=== PATIENT | male | born 1965 | race Caucasian/White ===

== ENCOUNTER 2024-01-11 07:03 | Inpatient (IN) | payer OTHER ==
--- NOTE | 2024-01-11 07:30 | ED ---
General Adult HPI - General Chief complaint: Chest Pain Stated complaint: Chest Pain Time Seen by Provider: 01/11/24 07:05 Source: patient, RN notes reviewed, old records reviewed Mode of arrival: ambulatory Limitations: no limitations - History of Present Illness Initial comments: This is a 58-year-old male who presents to the emergency department complaining of right-sided chest pain. Patient states that started yesterday and when he was at rest. Patient denies being short of breath he states he cannot take a deep breath. Patient denies any fever or chills. Patient states last week he did have an upper respiratory illness. Patient denies any abdominal pain patient has any back pain. Patient denies being on any long trips. Patient denies any calf tenderness or leg swelling - Related Data Home Medications Medication Instructions Recorded Confirmed Tamsulosin HCl [Flomax] 0.4 mg PO HS 01/11/24 01/11/24 Allergies Allergy/AdvReac Type Severity Reaction Status Date / Time No Known Allergies Allergy Verified 01/11/24 08:58 Review of Systems ROS Statement: Those systems with pertinent positive or pertinent negative responses have been documented in the HPI. ROS Other: All systems not noted in ROS Statement are negative. Past Medical History Past Medical History: No Reported History History of Any Multi-Drug Resistant Organisms: None Reported Past Surgical History: No Surgical Hx Reported Past Psychological History: No Psychological Hx Reported Smoking Status: Never smoker Past Alcohol Use History: None Reported Past Drug Use History: None Reported General Exam - General Exam Comments Initial Comments: GENERAL: Patient is well-developed and well-nourished. Patient is nontoxic and well- hydrated and is in mild distress. ENT: Neck is soft and supple. No significant lymphadenopathy is noted. Oropharynx is clear. Moist mucous membranes. Neck has full range of motion without eliciting any pain. EYES: The sclera were anicteric and conjunctiva were pink and moist. Extraocular movements were intact and pupils were equal round and reactive to light. Eyelids were unremarkable. PULMONARY: Unlabored respirations. Good breath sounds bilaterally. No audible rales rhonchi or wheezing was noted. CARDIOVASCULAR: Patient is tachycardic at about 110 beats a minute ABDOMEN: Soft and nontender with normal bowel sounds. SKIN: Skin is clear with no lesions or rashes and otherwise unremarkable. NEUROLOGIC: Patient is alert and oriented x3. Cranial nerves II through XII are grossly intact. Motor and sensory are also intact. Normal speech, volume and content. Symmetrical smile. MUSCULOSKELETAL: Normal extremities with adequate strength and full range of motion. LYMPHATICS: No significant lymphadenopathy is noted PSYCHIATRIC: Normal psychiatric evaluation. Limitations: no limitations Course Vital Signs 01/11/24 01/11/24 01/11/24 07:06 08:20 09:15 Temperature 98 F Pulse Rate 118 H 103 H 102 H Respiratory 22 20 20 Rate Blood Pressure 114/64 148/60 124/87 O2 Sat by Pulse 87 L 95 93 L Oximetry Medical Decision Making - Medical Decision Making EKG is interpreted by myself. EKG shows a sinus tachycardia at [address] interval 144 QRS is 97 QT interval is 281 QTc is 343. EKG shows Q waves in leads III and aVF. Was pt. sent in by a medical professional or institution (MEGGAN Gannon, MACHINE OPERATOR TRANSPLANTER, urgent care, hospital, or [facility]...) When possible be specific @ -[No] Did you speak to anyone other than the patient for history (EMS, parent, family, police, friend...)? What history was obtained from this source @ -[No] Did you review nursing and triage notes (agree or disagree)? Why? @ -[I reviewed and agree with nursing and triage notes] Were old charts reviewed (outside hosp., previous admission, EMS record, old EKG, old radiological studies, urgent care reports/EKG's, [facility] records)? Report findings @ -[No old charts were reviewed] Differential Diagnosis? @ -Differential Chest Pain: Stable Angina, Unstable Angina, STEMI, NSTEMI Aortic Dissection, Pneumothorax, Musculoskeletal, Esophageal Spasm GERD, Cholecystitis, Pancreatitis, Zoster, this is not meant to be an all-inclusive list. EKG interpreted by me (3pts min.). @ -[As above] X-rays interpreted by me (1pt min.). @ -Chest x-ray shows questionable infiltrate in the right lower lobe CT interpreted by me (1pt min.). @ -CT scan shows PE bilaterally U/S interpreted by me (1pt. min.). @ -[None done] What testing was considered but not performed or refused? (CT, X-rays, U/S, labs)? Why? @ -[None] What meds were considered but not given or refused? Why? @ -[None] Did you discuss the management of the patient with other professionals (professionals i.e. DrSydni, PA, MACHINE OPERATOR TRANSPLANTER, lab, RT, psych nurse, social service assistant, virtualization architect, teacher, president and chief commercial officer, casework supervisor)? Give summary @ -I spoke with Dr. Ag and made him aware of the PE with right heart strain. I spoke with [facility] Was smoking cessation discussed for >3mins.? @ -[No] Was critical care preformed (if so, how long)? @ -35 minutes Were there social determinants of health that impacted care today? How? (Homele ssness, low income, unemployed, alcoholism, drug addiction, transportation, low edu. Level, literacy, decrease access to med. care, senior living, rehab)? @ -[No] Was there de-escalation of care discussed even if they declined (Discuss DNR or withdrawal of care, Hospice)? DNR status @ -[No] What co-morbidities impacted this encounter? (DM, HTN, Smoking, COPD, CAD, Cancer, CVA, ARF, Chemo, Hep., AIDS, mental health diagnosis, sleep apnea, morbid obesity)? @ -[None] Was patient admitted / discharged? Hospital course, mention meds given and route, prescriptions, significant lab abnormalities, going to OR and other pertinent info. @ -Patient had classic PE symptoms that was verified by CAT scan. Patient was started on heparin and was given Toradol for some discomfort. Patient had an echo ordered by myself and I admitted the patient to [facility] who accepted the patient Undiagnosed new problem with uncertain prognosis? @ -[No] Drug Therapy requiring intensive monitoring for toxicity (Heparin, Nitro, Insulin, Cardizem)? @ -[No] Were any procedures done? @ -[No] Diagnosis/symptom? @ -Pulmonary embolism Acute, or Chronic, or Acute on Chronic? @ -Acute Uncomplicated (without systemic symptoms) or Complicated (systemic symptoms)? @ -Complicated Side effects of treatment? @ -[No] Exacerbation, Progression, or Severe Exacerbation? @ -[No] Poses a threat to life or bodily function? How? (Chest pain, [place], SD, pneumonia, PE, COPD, DKA, ARF, appy, cholecystitis, CVA, Diverticulitis, Homicidal, Suicidal, threat to staff... and all critical care pts) @ -Yes this could lead to hypoxia and endorgan dysfunction or - Lab Data Result diagrams: 01/11/24 07:27 01/11/24 07:27 Lab Results 01/11/24 01/11/24 01/11/24 Range/Units 07:27 07:27 07:27 WBC 11.1 H (3.8-10.6) k/uL RBC 5.17 (4.30-5.90) m/uL Hgb 15.3 (13.0-17.5) gm/dL Hct 47.1 (39.0-53.0) % MCV 91.1 (80.0-100.0) fL MCH 29.6 (25.0-35.0) pg MCHC 32.4 (31.0-37.0) g/dL RDW 13.5 (11.5-15.5) % Plt Count 175 (150-450) k/uL MPV 9.1 Neutrophils % 72 % Lymphocytes % 16 % Monocytes % 8 % Eosinophils % 0 % Basophils % 1 % Neutrophils # 8.0 H (1.3-7.7) k/uL Lymphocytes # 1.8 (1.0-4.8) k/uL Monocytes # 0.9 (0-1.0) k/uL Eosinophils # 0.0 (0-0.7) k/uL Basophils # 0.1 (0-0.2) k/uL PT 12.8 H (10.0-12.5) sec INR 1.2 H (<1.2) APTT 26.7 (22.0-30.0) sec D-Dimer 25.07 H (<0.60) mg/L FEU Sodium 135 L (137-145) mmol/L Potassium 3.5 (3.5-5.1) mmol/L Chloride 105 (98-107) mmol/L Carbon Dioxide 22 (22-30) mmol/L Anion Gap 8 mmol/L BUN 14 (9-20) mg/dL Creatinine 0.95 (0.66-1.25) mg/dL Est GFR (CKD-EPI)AfAm >90 (>60 ml/min/1.73 sqM) Est GFR (CKD-EPI)NonAf 88 (>60 ml/min/1.73 sqM) Glucose 117 H (74-99) mg/dL Calcium 8.6 (8.4-10.2) mg/dL Magnesium 2.1 (1.6-2.3) mg/dL Total Bilirubin 1.5 H (0.2-1.3) mg/dL AST 41 (17-59) U/L ALT 50 H (4-49) U/L Alkaline Phosphatase 73 (38-126) U/L Troponin I (0.000-0.034) ng/mL Total Protein 6.7 (6.3-8.2) g/dL Albumin 3.9 (3.5-5.0) g/dL 01/11/24 Range/Units 07:27 WBC (3.8-10.6) k/uL RBC (4.30-5.90) m/uL Hgb (13.0-17.5) gm/dL Hct (39.0-53.0) % MCV (80.0-100.0) fL MCH (25.0-35.0) pg MCHC (31.0-37.0) g/dL RDW (11.5-15.5) % Plt Count (150-450) k/uL MPV Neutrophils % % Lymphocytes % % Monocytes % % Eosinophils % % Basophils % % Neutrophils # (1.3-7.7) k/uL Lymphocytes # (1.0-4.8) k/uL Monocytes # (0-1.0) k/uL Eosinophils # (0-0.7) k/uL Basophils # (0-0.2) k/uL PT (10.0-12.5) sec INR (<1.2) APTT (22.0-30.0) sec D-Dimer (<0.60) mg/L FEU Sodium (137-145) mmol/L Potassium (3.5-5.1) mmol/L Chloride (98-107) mmol/L Carbon Dioxide (22-30) mmol/L Anion Gap mmol/L BUN (9-20) mg/dL Creatinine (0.66-1.25) mg/dL Est GFR (CKD-EPI)AfAm (>60 ml/min/1.73 sqM) Est GFR (CKD-EPI)NonAf (>60 ml/min/1.73 sqM) Glucose (74-99) mg/dL Calcium (8.4-10.2) mg/dL Magnesium (1.6-2.3) mg/dL Total Bilirubin (0.2-1.3) mg/dL AST (17-59) U/L ALT (4-49) U/L Alkaline Phosphatase (38-126) U/L Troponin I 0.070 H* (0.000-0.034) ng/mL Total Protein (6.3-8.2) g/dL Albumin (3.5-5.0) g/dL Critical Care Time Critical Care Time: Yes Total Critical Care Time: 35 Disposition Clinical Impression: Acute pulmonary embolism Disposition: ADMITTED IP TO THIS HOSP Referrals: None,Stated [REFERRING] - 1-2 days Time of Disposition: 09:43
--- NOTE | 2024-01-11 07:33 | XR ---
EXAMINATION TYPE: XR chest 2V DATE OF EXAM: 01/11/2024 COMPARISON: None INDICATION: Chest pain TECHNIQUE: Frontal and lateral views of the chest are obtained. FINDINGS: The heart size is normal. The pulmonary vasculature is normal. There appears to be some mild infiltrate along the right medial lower lobe. Correlate for atelectasis or pneumonia. IMPRESSION: 1. Right lower lobe atelectasis or pneumonia. Follow-up recommended.
[2024-01-11] MEDS: SODIUM CHLORIDE 0.9% 500 ML 500 ML IV STA (07:34)
[2024-01-11 08:06] LABS: Basophils # (A) 0.1 k/uL (0-0.2); Basophils % (A) 1 %; Eosinophils % (A) 0 %; HCT 47.1 % (39.0-53.0); HGB 15.3 gm/dL (13.0-17.5); Lymphocytes # (A) 1.8 k/uL (1.0-4.8); Lymphocytes % (A) 16 %; MCH 29.6 pg (25.0-35.0); MCHC 32.4 g/dL (31.0-37.0); MCV 91.1 fL (80.0-100.0); Mean Platelet Volume 9.1; Monocytes # (A) 0.9 k/uL (0-1.0); Monocytes % (A) 8 %; Neutrophils % (A) 72 %; Platelet Count 175 k/uL (150-450); RBC 5.17 m/uL (4.30-5.90); RDW 13.5 % (11.5-15.5); WBC 11.1 k/uL (3.8-10.6)
[2024-01-11 08:14] LABS: ALT 50 U/L (4-49); AST 41 U/L (17-59); African American GFR (CKD) >90 (>60 ml/min/1.73 sqM); Albumin 3.9 g/dL (3.5-5.0); Alkaline Phosphatase 73 U/L (38-126); Anion Gap 8 mmol/L; Blood Urea Nitrogen 14 mg/dL (9-20); Calcium 8.6 mg/dL (8.4-10.2); Carbon Dioxide 22 mmol/L (22-30); Chloride 105 mmol/L (98-107); Glucose 117 mg/dL (74-99); Magnesium 2.1 mg/dL (1.6-2.3); Non-African American GFR(CKD) 88 (>60 ml/min/1.73 sqM); Potassium 3.5 mmol/L (3.5-5.1); Sodium 135 mmol/L (137-145); Total Bilirubin 1.5 mg/dL (0.2-1.3); Total Protein 6.7 g/dL (6.3-8.2)
[2024-01-11 08:22] LABS: INR 1.2 (<1.2); Partial Thromboplastin Time 26.7 sec (22.0-30.0); Prothrombin Time 12.8 sec (10.0-12.5)
[2024-01-11] MEDS: KETOROLAC 15 MG/ML 1 ML VIAL IVP STA (08:26)
[2024-01-11] MEDS: HEPARIN SODIUM 1,000 UN/ML (10ML VL) IV ONE (08:46)
[2024-01-11] MEDS: HEPARIN SOD,PORK IN 0.45% NACL 25,000 UNIT in 0.45% NACL 1 250ML.BAG IV SCH ×3 (08:48→17:00)
--- NOTE | 2024-01-11 09:06 | CT ---
EXAMINATION TYPE: CT chest angio for PE CT DLP: 453.6 mGycm, Automated exposure control for dose reduction was used. DATE OF EXAM: 01/11/2024 8:47 AM COMPARISON: Chest radiograph from same day. CLINICAL INDICATION:Male, 58 years old with history of Chest pain; chest pain, elevated d-dimer TECHNIQUE/CONTRAST: CTA scan of the thorax is performed with IV Contrast, patient injected with 100 mL of Isovue 370, MIP images are created and reviewed these are created on a separate workstation.. FINDINGS: Pulmonary Artery: Bilateral pulmonary emboli in the pulmonary arteries extending to the lobar, segmen ana and subsegmental branches with evidence of right heart strain RV/LV 44/30 = 1.4 Lungs/Pleura: Ground glass opacities throughout the lungs most pronounced in the lower lungs. No foca l consolidation, pneumothorax or pleural effusion. Airway: Large airways are patent. Heart: Heart is within normal limits for size. Vasculature: No evidence of aortic aneurysm. Mediastinum: No gross evidence of adenopathy. Musculoskeletal: Mild degenerative disc disease changes are present throughout the thoracolumbar spin e. Soft Tissues/lymph nodes: Unremarkable. Lower neck: No significant findings. Upper Abdomen: Partially visualized is the mesentery with mesenteric lymph nodes. Gallstones in the g allbladder lumen. IMPRESSION: 1. Bilateral pulmonary emboli with evidence of right heart strain. 2. Wedge-shaped ground glass opacities possibly representing early pulmonary infarct. Findings communicated to Dr. Edgar Pablo MD on 01/11/2024 9:[address] Black Hanson.
[2024-01-11] MEDS: SODIUM CHLORIDE 0.9% 1,000 ML IV ONE (09:58)
--- NOTE | 2024-01-11 11:01 | P.GSCN ---
History of Present Illness Consult date: 01/11/24 Reason for Consult: Pulmonary embolism Requesting physician: Edgar Pablo History of present illness: This is a pleasant 58-year-old male who presented to the emergency department this morning with complaints of shortness of breath and pain in the right side of his chest. Patient states pain started yesterday in the right side of his ribs with shortness of breath and difficult to take deep breath without causing sharp pain. He had blood work that showed elevated D-dimer as well as elevated troponin. He had a CT angiogram of the chest which reported bilateral pulmonary emboli with evidence of right heart strain, wedge-shaped groundglass opacity possible representing early pulmonary infarct. Vascular surgery was consulted for pulmonary embolism. Patient has history of previous right lower extremity DVT about 12 years ago following vein treatment procedure. He was on anticoagulation at that time. St ates that he has not had any recent surgeries or procedures, no recent travel, he is a non-smoker, no new pain in his lower extremities. States that he does have varicosities so they will be uncomfortable at times but nothing significant. States he is having pain with deep breaths mostly on the right side. Denies any chest pain, no abdominal pain, nausea or vomiting. He has been afebrile. He is currently on 3 L of nasal cannula oxygen saturation 93 to 95%, heart rate 103 blood pressure 148/60 respiratory rate 20. Patient denies any history brain bleed or previous GI bleed. Denies any known family history of clotting disorders or bleeding disorders. Review of Systems A 14 point review systems was completed all pertinent positives and negatives as stated in the HPI. Past Medical History Past Medical History: No Reported History History of Any Multi-Drug Resistant Organisms: None Reported Past Surgical History: No Surgical Hx Reported Past Psychological History: No Psychological Hx Reported Smoking Status: Never smoker Past Alcohol Use History: None Reported Past Drug Use History: None Reported Medications and Allergies Home Medications Medication Instructions Recorded Confirmed Type Tamsulosin HCl [Flomax] 0.4 mg PO HS 01/11/24 01/11/24 History Allergies Allergy/AdvReac Type Severity Reaction Status Date / Time No Known Allergies Allergy Verified 01/11/24 08:58 Surgical - Exam Vital Signs Temp Pulse Resp BP Pulse Ox 98 F 118 H 22 114/64 87 L 01/11/24 07:06 01/11/24 07:06 01/11/24 07:06 01/11/24 07:06 01/11/24 07:06 General appearance: The patient is alert, oriented, appears in no acute distress. HET: Head is normocephalic and atraumatic. Pupils are equal and reactive. Neck: Supple. Heart: Regular. Lungs: Equal expansion, normal respiratory effort. Abdomen: Soft, nontender, nondistended. Extremities: Normal skin color and turgor. Lower extremity swelling. Neurological: No focal deficits. Strength and sensation are grossly intact. Results - Labs 01/11/24 07:27 01/11/24 07:27 Abnormal Lab Results - Last 24 Hours (Table) 01/11/24 01/11/24 01/11/24 Range/Units 07:27 07:27 07:27 WBC 11.1 H (3.8-10.6) k/uL Neutrophils # 8.0 H (1.3-7.7) k/uL PT 12.8 H (10.0-12.5) sec INR 1.2 H (<1.2) D-Dimer 25.07 H (<0.60) mg/L FEU Sodium 135 L (137-145) mmol/L Glucose 117 H (74-99) mg/dL Total Bilirubin 1.5 H (0.2-1.3) mg/dL ALT 50 H (4-49) U/L Troponin I (0.000-0.034) ng/mL 01/11/24 Range/Units 07:27 WBC (3.8-10.6) k/uL Neutrophils # (1.3-7.7) k/uL PT (10.0-12.5) sec INR (<1.2) D-Dimer (<0.60) mg/L FEU Sodium (137-145) mmol/L Glucose (74-99) mg/dL Total Bilirubin (0.2-1.3) mg/dL ALT (4-49) U/L Troponin I 0.070 H* (0.000-0.034) ng/mL Diabetes panel 01/11/24 Range/Units 07:27 Sodium 135 L (137-145) mmol/L Potassium 3.5 (3.5-5.1) mmol/L Chloride 105 (98-107) mmol/L Carbon Dioxide 22 (22-30) mmol/L BUN 14 (9-20) mg/dL Creatinine 0.95 (0.66-1.25) mg/dL Glucose 117 H (74-99) mg/dL Calcium 8.6 (8.4-10.2) mg/dL AST 41 (17-59) U/L ALT 50 H (4-49) U/L Alkaline Phosphatase 73 (38-126) U/L Total Protein 6.7 (6.3-8.2) g/dL Albumin 3.9 (3.5-5.0) g/dL Calcium panel 01/11/24 Range/Units 07:27 Calcium 8.6 (8.4-10.2) mg/dL Albumin 3.9 (3.5-5.0) g/dL Pituitary panel 01/11/24 Range/Units 07:27 Sodium 135 L (137-145) mmol/L Potassium 3.5 (3.5-5.1) mmol/L Chloride 105 (98-107) mmol/L Carbon Dioxide 22 (22-30) mmol/L BUN 14 (9-20) mg/dL Creatinine 0.95 (0.66-1.25) mg/dL Glucose 117 H (74-99) mg/dL Calcium 8.6 (8.4-10.2) mg/dL Adrenal panel 01/11/24 Range/Units 07:27 Sodium 135 L (137-145) mmol/L Potassium 3.5 (3.5-5.1) mmol/L Chloride 105 (98-107) mmol/L Carbon Dioxide 22 (22-30) mmol/L BUN 14 (9-20) mg/dL Creatinine 0.95 (0.66-1.25) mg/dL Glucose 117 H (74-99) mg/dL Calcium 8.6 (8.4-10.2) mg/dL Total Bilirubin 1.5 H (0.2-1.3) mg/dL AST 41 (17-59) U/L ALT 50 H (4-49) U/L Alkaline Phosphatase 73 (38-126) U/L Total Protein 6.7 (6.3-8.2) g/dL Albumin 3.9 (3.5-5.0) g/dL - Imaging Comments: CT angiogram of the chest which reported bilateral pulmonary emboli with evidence of right heart strain, wedge-shaped groundglass opacity possible representing early pulmonary infarct Assessment and Plan Assessment: 1. Bilateral submassive pulmonary embolism with right heart strain 2. History of right lower extremity deep vein thrombosis Plan: 1. Continue symptomatic and supportive care 2. Continue IV heparin 3. Type and screen ordered 4. Keep n.p.o. 5. Patient scheduled for EKOS procedure, procedure discussed with patient including risks and benefits. Will plan tentatively for this afternoon. 6. Rest of medical management per primary medical team Thank you for this consultation, we will continue to follow. The impression and plan of care has been dictated as directed. Dr. Perry I performed a history and examination of this patient, discussed the same with the dictator. I agree with the dictator's note ,documented as a scribe. Any additional findings or plans will be noted.
--- NOTE | 2024-01-11 11:05 | P.HPIM ---
History of Present Illness H&P Date: 01/11/24 History of Present Illness: Patient is a 58-year-old male with past medical history of venous insufficiency, DVT, and BPH complaining of right-sided chest pain. He states the pain started yesterday while he woke up describes it as a constant sharp pain made worse by inhaling. He also states the pain was made worse when changing positions from sitting to standing. He rates the pain a 7 out of 10. Denies any calf tenderness, edema, redness. Patient states he had a viral illness last week. He also says he had surgery for vein removal on the right leg due to venous insufficiency 15 years ago which led to DVT from the right lower extremity. Denies any nausea vomiting, fever, chills, palpitations, edema, headache, changes in vision. In the ED his vitals showed tachycardia with a heart rate of 104. Chest x-ray showed right lower lobe atelectasis. EKG on independent interpretation showed sinus tachycardia with ST elevation in leads II, 3. Chest CTA independently interpreted showed bilateral pulmonary emboli with right heart strain with wedge-shaped groundglass opacities. Patient had elevated D-dimer 25.07. Was started on heparin IV to 250 mls @ 18.37 mls/hr in the ED. Venous Doppler positive for left leg DVT. Vascular surgery following patient scheduled for EKOS procedure today. Pertinent positives and negatives as discussed above, a complete review of systems was performed and all other systems are negative. Vitals: Signs Reviewed Physical Exam: General: nontoxic, in moderate distress, appears at stated age Derm: warm, dry, intact Head: atraumatic, normocephalic, symmetric Eyes: EOMI, no lid lag, anicteric sclera Mouth: no lip lesion, mucus membranes moist Cardiovascular: S1 S2 reg, no murmur, rubs, or gallops, tachycardic Lungs: CTA bilateral, no rhonchi, no rales, no accessory muscle use, dyspnea Abdominal: soft, non-tender to palpataion, no appreciable organomegaly Extremities: no gross muscle atrophy, no edema, no contractures Neuro: Alert, Oriented, CNII-XII grossly intact, gait normal Psych: well appearing, appropriate affect Data Received Today: Pertinent Labs PT 12.8, INR 1.2, 8 PE TTE 26.7, D-dimer 25.07 Imaging: Chest CTA: Bilateral pulmonary emboli with right heart strain. EKG: Sinus tachycardia with slight ST elevation in leads II, III, aVF Chest x-ray: Right lower lobe atelectasis independently interpreted. Venous Doppler study: Left leg positive for DVT. There is a 6.6 cm acute DVT within the mid femoral vein. There is also thrombophlebitis at patient's site of discoloration at the anterior proximal calf. Echocardiogram Doppler: Left ventricular ejection fraction estimated at 55 to 60%. Mildly increased Assessment and Plan: Patient is a 58-year-old male with a past medical history of DVT, venous insufficiency, BPH that presents with right-sided chest pain. Acute hypoxic respiratory failure secondary to bilateral submassive pulmonary embolism with right heart strain due to DVT in the left leg Heparin IV to 50 MLS at 2.5 MLS/HR daily tPA 6mg 150 mls @ 25 mls/hr IV q6h 1 mg/hr IV saline 0.9% 1000 mls at 35 mls/hr q24hr Troponin elevated likely due to right heart strain Vascular surgery following Scheduled for EKOS procedure today. BPH, chronic Flomax 0.4 mg p.o. nightly History of right lower extremity DVT venous insufficiency, chronic F: saline 0.9% 1000 mls at 35 mls/hr E: replete as needed N: NPO A: fall precautions DVT ppx: IV heparin, tPA Code status: Unknown Anticipated discharge place: Pending clinical course Anticipated discharge time: Pending clinical course I have seen and evaluated the patient today. Discussed with the resident and agree with the residents finding and plan as documented in the resident's note. Patient was seen after EKOS. Doing well. No more chest pain or SOB. LLE + DVT. Echo EF 55-60%, dilated RV and mild RV hypokinesis, mild-mod TR. Acute hypoxic respiratory failure secondary to bilateral PE with right heart strain Troponin elevation likely type II NSTEMI Leukocytosis Supratherapeutic INR Continue Heparin drip and thrombolytics. Monitor APTT and signs of bleeding. Pain management with Tylenol 650 mg PO Q6H PRN, [place] 5 1 tab PO Q4H PRN, Morphine 2 mg IV Q4H PRN. Zofran 4 mg IV Q8H PRN for N/V. Advanced neurochecks. Telemetry monitoring. Vascular surgery on board. Past Medical History Past Medical History: No Reported History History of Any Multi-Drug Resistant Organisms: None Reported Past Surgical History: No Surgical Hx Reported Past Psychological History: No Psychological Hx Reported Smoking Status: Never smoker Past Alcohol Use History: None Reported Past Drug Use History: None Reported Medications and Allergies Home Medications Medication Instructions Recorded Confirmed Type Tamsulosin HCl [Flomax] 0.4 mg PO HS 01/11/24 01/11/24 History Allergies Allergy/AdvReac Type Severity Reaction Status Date / Time No Known Allergies Allergy Verified 01/11/24 08:58 Physical Exam Vitals: Vital Signs Temp Pulse Resp BP Pulse Ox 01/11/24 09:15 102 H 20 124/87 93 L 01/11/24 08:20 103 H 20 148/60 95 01/11/24 07:06 98 F 118 H 22 114/64 87 L Intake and Output 01/10/24 01/11/24 01/11/24 22:59 06:59 14:59 Other: Weight 102.058 kg Results CBC & Chem 7: 01/11/24 07:27 01/11/24 07:27 Labs: Abnormal Lab Results - Last 24 Hours (Table) 01/11/24 01/11/24 01/11/24 Range/Units 07:27 07:27 07:27 WBC 11.1 H (3.8-10.6) k/uL Neutrophils # 8.0 H (1.3-7.7) k/uL PT 12.8 H (10.0-12.5) sec INR 1.2 H (<1.2) D-Dimer 25.07 H (<0.60) mg/L FEU Sodium 135 L (137-145) mmol/L Glucose 117 H (74-99) mg/dL Total Bilirubin 1.5 H (0.2-1.3) mg/dL ALT 50 H (4-49) U/L Troponin I (0.000-0.034) ng/mL 01/11/24 Range/Units 07:27 WBC (3.8-10.6) k/uL Neutrophils # (1.3-7.7) k/uL PT (10.0-12.5) sec INR (<1.2) D-Dimer (<0.60) mg/L FEU Sodium (137-145) mmol/L Glucose (74-99) mg/dL Total Bilirubin (0.2-1.3) mg/dL ALT (4-49) U/L Troponin I 0.070 H* (0.000-0.034) ng/mL
--- NOTE | 2024-01-11 12:39 | US ---
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 VESSELS IMAGED: Common Femoral Vein Deep Femoral Vein Greater Saphenous Vein * Femoral Vein Popliteal Vein Small Saphenous Vein * Proximal Calf Veins (* superficial vessels) Right Leg: Negative for DVT Left Leg: Positive for DVT, there is a 6.6cm acute DVT within the mid femoral vein. There is also th rombophlebitis at patients site of discoloration at the anterior prox calf IMPRESSION: Positive deep vein thrombosis in the left leg
--- NOTE | 2024-01-11 14:16 | CA ---
Transthoracic Echo Report Name: Devendra Calle Age: 58 Gender: M : 1965 Exam Date: 01/11/2024 10:06 Exam Location: [facility] Ht (in): 60 Wt (lb): 225 Ordering Physician: Edgar Pablo MD Attending/Referring Phys: Tag Maker Azalea Casey RDCS Procedure CPT: Indications: Saddle pulmonary embolism Cardiac Hx: Technical Quality: Technically difficult study Contrast 1: Definity Total Dose (mL): 2 Contrast 2: Total Dose (mL): MEASUREMENTS (Male / Female) Normal Values 2D ECHO LV Diastolic Diameter PLAX 3.4 cm 4.2 - 5.9 / 3.9 - 5.3 cm LV Systolic Diameter PLAX 2.2 cm IVS Diastolic Thickness 1.1 cm 0.6 - 1.0 / 0.6 - 0.9 cm LVPW Diastolic Thickness 1.0 cm 0.6 - 1.0 / 0.6 - 0.9 cm LV Relative Wall Thickness 0.6 LVOT Diameter 2.0 cm LV Diastolic Volume MOD BP 57.8 cm??? 67 - 155 / 56 - 104 cm??? LV Systolic Volume MOD BP 21.2 cm??? 22 - 58 / 19 - 49 cm??? LV Ejection Fraction MOD BP 63.2 % >= 55 % LV Cardiac Index MOD BP 1673.0 cm???/min???m??? LV Diastolic Volume MOD 4C 57.9 cm??? LV Systolic Volume MOD 4C 18.4 cm??? LV Ejection Fraction MOD 4C 68.2 % LV Cardiac Index MOD 4C 1808.9 cm???/min???m??? LV Diastolic Length 4C 8.5 cm LV Systolic Length 4C 6.3 cm LV Diastolic Volume MOD 2C 52.6 cm??? LV Systolic Volume MOD 2C 21.8 cm??? LV Ejection Fraction MOD 2C 58.5 % LV Cardiac Index MOD 2C 1408.1 cm???/min???m??? LV Diastolic Length 2C 7.8 cm LV Systolic Length 2C 7.1 cm LA Volume 52.4 cm??? 18 - 58 / 22 - 52 cm??? LA Volume Index 24.5 cm???/m??? 16 - 28 cm???/m??? Ascending Aorta Diameter 2.8 cm DOPPLER AV Peak Velocity 131.9 cm/s AV Peak Gradient 7.0 mmHg AV Mean Velocity 91.0 cm/s AV Mean Gradient 3.7 mmHg AV Velocity Time Integral 20.6 cm LVOT Peak Velocity 117.7 cm/s LVOT Peak Gradient 5.5 mmHg LVOT Velocity Time Integral 18.3 cm LVOT Stroke Volume 55.1 cm??? LVOT Stroke Volume Index 28.1 ml/m??? LVOT Cardiac Index 2524.1 cm???/min???m??? AV Area Cont Eq vti 2.7 cm??? AV Area Cont Eq pk 2.7 cm??? MV Area PHT 6.0 cm??? Mitral E Point Velocity 49.9 cm/s Mitral A Point Velocity 61.9 cm/s Mitral E to A Ratio 0.8 MV Deceleration Time 126.4 ms TR Peak Velocity 350.8 cm/s TR Peak Gradient 49.2 mmHg PV Peak Velocity 66.5 cm/s PV Peak Gradient 1.8 mmHg FINDINGS Left Ventricle Left ventricular ejection fraction is estimated at 55-60 %. Mildly increased septal wall thickness. Left ventricular cavity size normal. No obvious regional wall motion abnormalities. Right Ventricle Moderately dilated right ventricle with mild right ventricular hypokinesis. RVSP 49. Right Atrium Normal right atrial size. Left Atrium Normal left atrial size. Mitral Valve Structurally normal mitral valve. No mitral stenosis, regurgitation or prolapse. Aortic Valve Trileaflet aortic valve. Aortic valve sclerosis. No aortic valve stenosis or regurgitation. Tricuspid Valve Structurally normal tricuspid valve. No tricuspid stenosis. Hbto-ii-cptmyzce tricuspid regurgitation. Pulmonic Valve Structurally normal pulmonic valve. No pulmonic stenosis. No pulmonic regurgitation. Pericardium No pericardial effusion. Aorta Normal size aortic root and proximal ascending aorta. CONCLUSIONS Left ventricular ejection fraction 55-60% Mildly increased left ventricular wall thickened Moderately dilated right ventricle with mild right ventricular hypokinesis RVSP 49 Mild to moderate tricuspid regurgitation No pericardial effusion Previewed by: Dr. Melvin Zafar DO (Electronically Signed) Final Date: 11 January 2024 14:16
[2024-01-11] MEDS ORDERED: LIDOCAINE 1% INJ 10MG/ML (20 ML MDV) ONE (14:34)
[2024-01-11] MEDS ORDERED: fentaNYL (PF) 50 MCG/ML 2 ML AMP ONE (14:59)
[2024-01-11] MEDS: LIDOCAINE 1% INJ 10MG/ML (20 ML MDV) SQ ONE (15:00)
[2024-01-11] MEDS: MIDAZOLAM 2 MG/2 ML VIAL IVP ONE (15:02)
[2024-01-11] MEDS: fentaNYL (PF) 50 MCG/ML 2 ML AMP IVP ONE (15:02)
--- NOTE | 2024-01-11 16:34 | P.OP ---
Date of Procedure: 01/11/24 Description of Procedure: Preoperative diagnosis: Submassive bilateral pulmonary emboli Postoperative diagnosis: Same, duplicate IVC Procedure: #1 ultrasound-guided right common femoral vein access of central venous catheters x 2 2. Iliofemoral angiogram 3. Inferior venacavogram, selective of each vena cava #2 bilateral selective pulmonary angiogram third order #3 Initiation of pulmonary pharmacal mechanical thrombolysis with EKOS #4 Moderate conscious sedation x [57m] Surgeon: Abby Perry D.O. EBL: Less than 10 mL IV fluids: See records Urine output: See records Drains: None Complications: None immediately apparent Condition: Stable to ICU Operative indication and findings: [Patient is a 58-year-old male with new onset shortness of breath workup and evaluation was found to have submassive bilateral pulmonary emboli therefore risks and benefits were discussed and the recommendations were made for thrombectomy/thrombolysis. He seems understood and was willing to proceed.] Procedure in detail: [The patient was taken to the radiology suite and placed in supine position. Bilateral groins are prepped and draped in usual sterile fashion. A preprocedure timeout was performed, all parties were in agreement. The right common femoral vein was identified and found to be compressible without any evidence of visible thrombus. A permanent image was stored the skin overlying was anesthetized 1% lidocaine plain. A multipurpose needle was used and the vein was accessed and a wire was placed. This was done again through a separate access site. 2, 6-Persian sheaths were placed. Using catheters and wires attempts were made to access the right and left pulmonary arteries however there seem to be continued difficulty in tracking through this level to the level of the pulmonary vasculature. An angiogram was performed showing a patent vena cava with some degree of tortuosity. At that point after multiple catheters, the CT scan was repeated reviewed and it did appear that there may be evidence of a duplicated IVC with the left sided portion draining into the superior vena cava directly and brachiocephalic vein. A repeat image was performed at the distal confluence and the duplicated visualization was achieved. This right lateral portion was selected and a repeat venogram was performed. There appeared to be direct connection with the ventricle as typical. These catheters and wires were then used to access the right and left pulmonary artery with selective angiogram performed. Once positioning was confirmed, an EKOS ultrasonic pharmacomechanical infusion catheter was placed and confirmed appropriate positioning within the pulmonary arteries. The catheters were hooked up to appropriate fluid infusions for the optelyse protocol for submassive pulmonary emboli. The sheaths were sutured in place. Dressing was placed. The patient was transferred back to ICU in stable condition having tolerated the procedure well.
[2024-01-11 16:54] LABS: Glucose,Whole Blood 91 mg/dL (70-110)
[2024-01-11] MEDS: SODIUM CHLORIDE 0.9% 1,000 ML IV SCH ×4 (17:00→23:01)
[2024-01-11] MEDS: ALTEPLASE 6 MG in SODIUM CHLORIDE 0.9% 144 ML IV ONE ×2 (17:00)
[2024-01-11] MEDS ORDERED: HYDROcodone/APAP 5-325MG 1 EACH TAB PO PRN (17:28)
[2024-01-11] MEDS ORDERED: MELATONIN 3 MG TABLET PO PRN (17:28)
[2024-01-11] MEDS ORDERED: NALOXONE 0.4 MG/ML 1 ML VIAL IV PRN (17:28)
[2024-01-11 17:59] LABS: Basophils % (A) 0 %; Eosinophils % (A) 0 %; HGB 14.2 gm/dL (13.0-17.5); Lymphocytes # (A) 1.5 k/uL (1.0-4.8); Lymphocytes % (A) 17 %; MCH 30.6 pg (25.0-35.0); MCHC 32.9 g/dL (31.0-37.0); Mean Platelet Volume 8.7; Monocytes # (A) 0.7 k/uL (0-1.0); Monocytes % (A) 7 %; Neutrophils # (A) 6.7 k/uL (1.3-7.7); Neutrophils % (A) 72 %; Platelet Count 159 k/uL (150-450); RBC 4.63 m/uL (4.30-5.90); RDW 13.4 % (11.5-15.5); WBC 9.2 k/uL (3.8-10.6)
[2024-01-11 18:16] LABS: Partial Thromboplastin Time 33.7 sec (22.0-30.0)
[2024-01-11] MEDS: TAMSULOSIN 0.4 MG CAP.ER.24H PO SCH (21:22)
[2024-01-12 02:01] LABS: Basophils % (A) 0 %; Eosinophils % (A) 0 %; HCT 40.7 % (39.0-53.0); HGB 13.5 gm/dL (13.0-17.5); Lymphocytes # (A) 1.3 k/uL (1.0-4.8); Lymphocytes % (A) 14 %; MCH 30.7 pg (25.0-35.0); MCHC 33.1 g/dL (31.0-37.0); MCV 92.9 fL (80.0-100.0); Mean Platelet Volume 8.9; Monocytes # (A) 0.6 k/uL (0-1.0); Monocytes % (A) 6 %; Neutrophils # (A) 7.3 k/uL (1.3-7.7); Neutrophils % (A) 78 %; Platelet Count 150 k/uL (150-450); RBC 4.38 m/uL (4.30-5.90); RDW 13.3 % (11.5-15.5); WBC 9.4 k/uL (3.8-10.6)
[2024-01-12 04:58] LABS: Basophils % (A) 0 %; Eosinophils % (A) 1 %; HCT 39.3 % (39.0-53.0); HGB 12.9 gm/dL (13.0-17.5); Lymphocytes # (A) 1.3 k/uL (1.0-4.8); Lymphocytes % (A) 16 %; MCH 30.6 pg (25.0-35.0); MCHC 32.8 g/dL (31.0-37.0); MCV 93.3 fL (80.0-100.0); Monocytes # (A) 0.5 k/uL (0-1.0); Monocytes % (A) 7 %; Neutrophils # (A) 6.2 k/uL (1.3-7.7); Neutrophils % (A) 75 %; Platelet Count 164 k/uL (150-450); RBC 4.21 m/uL (4.30-5.90); RDW 13.3 % (11.5-15.5); WBC 8.4 k/uL (3.8-10.6)
[2024-01-12 05:13] LABS: ALT 35 U/L (4-49); AST 34 U/L (17-59); African American GFR (CKD) >90 (>60 ml/min/1.73 sqM); Albumin 2.8 g/dL (3.5-5.0); Alkaline Phosphatase 65 U/L (38-126); Anion Gap 5 mmol/L; Blood Urea Nitrogen 12 mg/dL (9-20); Calcium 7.8 mg/dL (8.4-10.2); Carbon Dioxide 19 mmol/L (22-30); Chloride 110 mmol/L (98-107); Glucose 89 mg/dL (74-99); Non-African American GFR(CKD) >90 (>60 ml/min/1.73 sqM); Potassium 3.6 mmol/L (3.5-5.1); Sodium 134 mmol/L (137-145); Total Bilirubin 1.5 mg/dL (0.2-1.3); Total Protein 5.3 g/dL (6.3-8.2)
[2024-01-12] MEDS ORDERED: Potassium Replacement Protocol 1 EACH MISC MISCELLANE PRN (05:20)
[2024-01-12] MEDS: POTASSIUM CHLORIDE ER 20 MEQ TAB.ER PO SCH (08:19)
[2024-01-12] MEDS: ONDANSETRON 4 MG/2 ML VIAL IVP PRN (08:19)
[2024-01-12] MEDS: MORPHINE SULFATE 4 MG/ML SYRINGE IVP PRN (08:19)
[2024-01-12] MEDS: APIXABAN 5 MG TAB PO SCH (10:58)
--- NOTE | 2024-01-12 11:26 | P.PN ---
Subjective Progress Note Date: 01/12/24 Principal diagnosis: Submassive bilateral pulmonary emboli Patient is seen and examined today as a follow-up. He is status post EKOS thrombolysis. Today he states his breathing is better. He does not have as much pain with breathing and he is able to take a deeper breath. Oxygen saturation 93 to 95% with 2 L of nasal cannula. tPA catheters in place in right groin. He denies any abdominal pain, nausea or vomiting, no bleeding from right groin. Patient had positive left lower extremity DVT. Objective - Vital Signs Vital signs: Vital Signs Temp 98.6 F 01/12/24 04:00 Pulse 86 01/12/24 07:00 Resp 16 01/12/24 07:00 BP 115/82 01/12/24 07:00 Pulse Ox 96 01/12/24 07:00 FiO2 95 01/11/24 17:15 Intake & Output 01/11/24 01/12/24 01/12/24 18:59 06:59 18:59 Intake Total 316.177 1230.96 178.37 Output Total 0 620 0 Balance 955.207 1194.96 178.37 Weight 100 kg Intake: IV 510.0 2246.96 178.37 Alteplase 6 mg In Sodium 50 300 25 Chloride 0.9% 144 ml @ 1 MG/HR 25 mls/hr IV .Q6H [facility] Rx#:[id number] Alteplase 6 mg In Sodium 50 300 25 Chloride 0.9% 144 ml @ 1 MG/HR 25 mls/hr IV .Q6H [facility] Rx#:[id number] Heparin Sod,Pork in 0.45% 106.96 13.37 NaCl 25,000 unit In 0.45 % NaCl 1 250ml.bag @ 18 UNITS/KG/HR 18.37 mls/hr IV .[id number] [facility] Rx#: [id number] Heparin Sod,Pork in 0.45% 5.0 27.5 2.5 NaCl 25,000 unit In 0.45 % NaCl 1 250ml.bag @ 2.5 mls/hr IV .Q24H [facility] Rx#: [id number] Heparin Sod,Pork in 0.45% 5.0 27.5 2.5 NaCl 25,000 unit In 0.45 % NaCl 1 250ml.bag @ 2.5 mls/hr IV .Q24H [facility] Rx#: [id number] Invasive Line 1 10 Sodium Chloride 0.9% 1, 250 250 000 ml @ 125 mls/hr IV . Q8H [facility] Rx#:[id number] Sodium Chloride 0.9% 1, 70 140 000 ml @ 35 mls/hr IV . Q24H [facility] Rx#:[id number] Sodium Chloride 0.9% 1, 70 420 35 000 ml @ 35 mls/hr IV . Q24H [facility] Rx#:[id number] Sodium Chloride 0.9% 1, 675 75 000 ml @ 75 mls/hr IV . [id number] [facility] Rx#:[id number] Intake, IV Titration 150.634 0 Amount Heparin Sod,Pork in 0.45% 150.634 0 NaCl 25,000 unit In 0.45 % NaCl 1 250ml.bag @ 18 UNITS/KG/HR 18.37 mls/hr IV .[id number] [facility] Rx#: [id number] Oral 240 Output: Urine 0 620 0 Other: Voiding Method Urinal # Bowel Movements 0 0 - Exam General appearance: The patient is alert, oriented, appears in no acute distress. HET: Head is normocephalic and atraumatic. Pupils are equal and reactive. Neck: Supple. Heart: Regular. Lungs: Equal expansion, normal respiratory effort. Abdomen: Soft, nontender, nondistended. Extremities: Normal skin color and turgor. Bilateral lower extremity warm to the touch, palpable DP pulses and lower extremity swelling. Right groin with tPA catheters in place, no bleeding or hematoma noted. Catheters then removed, again no hematoma or bleeding noted. Neurological: No focal deficits. Alert and oriented x 3.. - Labs CBC & Chem 7: 01/12/24 04:22 01/12/24 04:22 Labs: Abnormal Lab Results - Last 24 Hours (Table) 01/11/24 01/11/24 01/11/24 Range/Units 07:27 07:27 07:27 WBC 11.1 H (3.8-10.6) k/uL RBC (4.30-5.90) m/uL Hgb (13.0-17.5) gm/dL Neutrophils # 8.0 H (1.3-7.7) k/uL PT 12.8 H (10.0-12.5) sec INR 1.2 H (<1.2) APTT (22.0-30.0) sec D-Dimer 25.07 H (<0.60) mg/L FEU Sodium 135 L (137-145) mmol/L Chloride (98-107) mmol/L Carbon Dioxide (22-30) mmol/L Creatinine (0.66-1.25) mg/dL Glucose 117 H (74-99) mg/dL Calcium (8.4-10.2) mg/dL Total Bilirubin 1.5 H (0.2-1.3) mg/dL ALT 50 H (4-49) U/L Troponin I (0.000-0.034) ng/mL Total Protein (6.3-8.2) g/dL Albumin (3.5-5.0) g/dL 01/11/24 01/11/24 01/12/24 Range/Units 07:27 17:26 04:22 WBC (3.8-10.6) k/uL RBC 4.21 L (4.30-5.90) m/uL Hgb 12.9 L (13.0-17.5) gm/dL Neutrophils # (1.3-7.7) k/uL PT (10.0-12.5) sec INR (<1.2) APTT 33.7 H (22.0-30.0) sec D-Dimer (<0.60) mg/L FEU Sodium (137-145) mmol/L Chloride (98-107) mmol/L Carbon Dioxide (22-30) mmol/L Creatinine (0.66-1.25) mg/dL Glucose (74-99) mg/dL Calcium (8.4-10.2) mg/dL Total Bilirubin (0.2-1.3) mg/dL ALT (4-49) U/L Troponin I 0.070 H* (0.000-0.034) ng/mL Total Protein (6.3-8.2) g/dL Albumin (3.5-5.0) g/dL 01/12/24 Range/Units 04:22 WBC (3.8-10.6) k/uL RBC (4.30-5.90) m/uL Hgb (13.0-17.5) gm/dL Neutrophils # (1.3-7.7) k/uL PT (10.0-12.5) sec INR (<1.2) APTT (22.0-30.0) sec D-Dimer (<0.60) mg/L FEU Sodium 134 L (137-145) mmol/L Chloride 110 H (98-107) mmol/L Carbon Dioxide 19 L (22-30) mmol/L Creatinine 0.63 L (0.66-1.25) mg/dL Glucose (74-99) mg/dL Calcium 7.8 L (8.4-10.2) mg/dL Total Bilirubin 1.5 H (0.2-1.3) mg/dL ALT (4-49) U/L Troponin I (0.000-0.034) ng/mL Total Protein 5.3 L (6.3-8.2) g/dL Albumin 2.8 L (3.5-5.0) g/dL Assessment and Plan Assessment: 1. Bilateral submassive pulmonary emboli with right heart strain status post pulmonary pharmacomechanical thrombolysis with EKOS 2. Left lower extremity deep vein thrombosis 3. History of right lower extremity deep vein thrombosis Plan: 1. Continue symptomatic and supportive care 2. Discontinue heparin 3. Start Eliquis 10 mg twice daily, taper dose 4. Patient may have regular diet 5. Incentive spirometer ordered, encourage use 6. tPA catheters removed. Nursing to remove venous sheath. Bedrest for 2 hours post then may increase activity as tolerated 7. Patient may be transferred to cardiac stepdown unit with telemetry Thank you for this consultation, we will continue to follow. The impression and plan of care has been dictated as directed. Dr. Perry I performed a history and examination of this patient, discussed the same with the dictator. I agree with the dictator's note ,documented as a scribe. Any additional findings or plans will be noted.
--- NOTE | 2024-01-12 12:11 | P.PN ---
Subjective Progress Note Date: 01/12/24 58 year old M with PMH of RLE DVT, venous insufficiency and BPH presented to the ED with complaints of chest pain worse with inspiration and exertional SOB. In the ED he underwent extensive evaluation. BP 114/64, HR 118, RR 22, T 98F, 87% on RA. CBC, Coag panel, CMP showed WBC 11.1, PT 12.8, INR 1.2, glu 117, Na 135, T. Bili 1.5, ALT 50. Mag 2.1. Troponin 0.070. D-Dimer 25.07. CXR RLL atelectasis. CTA chest bilateral PE with right heart strain and wedge shaped ground glass opacities. Patient was started on a heparin drip and admitted for management of PE. Vascular duplex showed LLE + DVT. Echo EF 55-60%, dilated RV and mild RV hypokinesis, mild-mod TR. Vascular surgery consulted and he underwent EKOS with infusion of alteplase. Transferred to ICU post EKOS. 01/11 Patient was seen and examined. No acute events overnight. Still with pleuritic chest pain with deep inspiration but improved. CBC RBC 4.21, Hg 12.9. Fibrinogen 431. CMP Na 134, Cl 110, bicarb 19, Cr 0.63, Ca 7.8, T. Bili 1.5, alb 2.8. General: non toxic, no distress, appears at stated age Derm: warm, dry Head: atraumatic, normocephalic, symmetric Eyes: EOMI, no lid lag, anicteric sclera Mouth: no lip lesion, mucus membranes moist Cardiovascular: S1S2 reg, no murmur Lungs: CTA bilateral, no rhonchi, no rales , no accessory muscle use Ext: no gross muscle atrophy, no edema, no contractures Psych: Alert, oriented, appropriate affect Acute hypoxic respiratory failure secondary to bilateral PE with right heart strain Troponin elevation likely type II NSTEMI Leukocytosis Supratherapeutic INR Elevated bilirubin Heparin drip transitioned to Eliquis 10 mg PO BID. Will need lifelong anticoagulation. Outpatient hematology hypercoaguable workup. Pain management with Tylenol 650 mg PO Q6H PRN, [place] 5 1 tab PO Q4H PRN, [place] ne 2 mg IV Q4H PRN. Zofran 4 mg IV Q8H PRN for N/V. CT AP ordered by vascular surgery to evaluate DVT. Telemetry monitoring. Vascular surgery on board. Objective - Vital Signs Vital signs: Vital Signs Temp 98.2 F 01/12/24 08:00 Pulse 79 01/12/24 11:00 Resp 32 H 01/12/24 11:00 BP 113/73 01/12/24 11:00 Pulse Ox 93 L 01/12/24 11:00 FiO2 95 01/11/24 17:15 Intake & Output 01/11/24 01/12/24 01/12/24 18:59 06:59 18:59 Intake Total 291.172 2268.96 1319.642 Output Total 0 620 0 Balance 995.540 7480.96 1319.642 Weight 100 kg Intake: IV 510.0 2246.96 538.37 .9 10 x 2 venous sheaths 50 Alteplase 6 mg In Sodium 50 300 25 Chloride 0.9% 144 ml @ 1 MG/HR 25 mls/hr IV .Q6H [facility] Rx#:[id number] Alteplase 6 mg In Sodium 50 300 25 Chloride 0.9% 144 ml @ 1 MG/HR 25 mls/hr IV .Q6H [facility] Rx#:[id number] Heparin Sod,Pork in 0.45% 106.96 13.37 NaCl 25,000 unit In 0.45 % NaCl 1 250ml.bag @ 18 UNITS/KG/HR 18.37 mls/hr IV .[id number] [facility] Rx#: [id number] Heparin Sod,Pork in 0.45% 5.0 27.5 2.5 NaCl 25,000 unit In 0.45 % NaCl 1 250ml.bag @ 2.5 mls/hr IV .Q24H [facility] Rx#: [id number] Heparin Sod,Pork in 0.45% 5.0 27.5 2.5 NaCl 25,000 unit In 0.45 % NaCl 1 250ml.bag @ 2.5 mls/hr IV .Q24H [facility] Rx#: [id number] Invasive Line 1 10 Invasive Line 4 10 Sodium Chloride 0.9% 1, 250 250 000 ml @ 125 mls/hr IV . Q8H [facility] Rx#:[id number] Sodium Chloride 0.9% 1, 70 140 000 ml @ 35 mls/hr IV . Q24H [facility] Rx#:[id number] Sodium Chloride 0.9% 1, 70 420 35 000 ml @ 35 mls/hr IV . Q24H [facility] Rx#:[id number] Sodium Chloride 0.9% 1, 675 375 000 ml @ 75 mls/hr IV . [id number] [facility] Rx#:[id number] Intake, IV Titration 150.634 0 181.272 Amount Heparin Sod,Pork in 0.45% 150.634 0 109.188 NaCl 25,000 unit In 0.45 % NaCl 1 250ml.bag @ 18 UNITS/KG/HR 18.37 mls/hr IV .[id number] [facility] Rx#: [id number] Heparin Sod,Pork in 0.45% 36.042 NaCl 25,000 unit In 0.45 % NaCl 1 250ml.bag @ 2.5 mls/hr IV .Q24H [facility] Rx#: [id number] Heparin Sod,Pork in 0.45% 36.042 NaCl 25,000 unit In 0.45 % NaCl 1 250ml.bag @ 2.5 mls/hr IV .Q24H [facility] Rx#: [id number] Oral 240 600 Output: Urine 0 620 0 Other: Voiding Method Urinal Urinal # Bowel Movements 0 0 0 - Labs CBC & Chem 7: 01/12/24 04:22 01/12/24 04:22 Labs: Abnormal Lab Results - Last 24 Hours (Table) 01/11/24 01/12/24 01/12/24 Range/Units 17:26 04:22 04:22 RBC 4.21 L (4.30-5.90) m/uL Hgb 12.9 L (13.0-17.5) gm/dL APTT 33.7 H (22.0-30.0) sec Sodium 134 L (137-145) mmol/L Chloride 110 H (98-107) mmol/L Carbon Dioxide 19 L (22-30) mmol/L Creatinine 0.63 L (0.66-1.25) mg/dL Calcium 7.8 L (8.4-10.2) mg/dL Total Bilirubin 1.5 H (0.2-1.3) mg/dL Total Protein 5.3 L (6.3-8.2) g/dL Albumin 2.8 L (3.5-5.0) g/dL
--- NOTE | 2024-01-12 15:36 | CT ---
EXAMINATION TYPE: CT abdomen pelvis w con, venogram DATE OF EXAM: 01/12/2024 COMPARISON: NONE HISTORY: 58-year-old male LLE DVT AND PE DX YESTERDAY. VENOUS PHASES REQUESTED TECHNIQUE: Contiguous axial scanning of the abdomen and pelvis following administration of 100 ml Iso goyo-370 IV contrast along with 50 mL saline flush. 2.5 minutes and 3.5 minute delayed obtained. Jimena nal and sagittal reconstructions performed. CT DLP: 1998.2 mGycm Automated exposure control for dose reduction was used. FINDINGS: Heart normal size without pericardial effusion. New trace pleural effusions. Increased patc hy bibasilar opacities, probably areas of atelectasis. Areas of developing pulmonary infarct not excl uded at this time. Patient's known bilateral lower lobe pulmonary emboli not well seen on this phase of imaging. Subtly apparent on some images. Liver enlarged at 19.9 cm. No focal liver lesion. Portal venous system is patent. No biliary ductal d ilatation. Gallbladder, adrenal glands, left kidney, spleen, and pancreas within normal limits. Slightly malrota stacie right kidney. Midabdominal Cory mesentery with some prominent lymph nodes measuring up to 1.6 cm. The IVC terminates at the level of the retroaortic left renal vein which has contribution from a left -sided IVC. There is also hemiazygos continuation of the IVC noted. Unable to clearly identify any abnormal filling defect within the visualized venous system of the abd omen or pelvis. Midabdominal cory mesentery with scattered borderline and mildly enlarged lymph nodes measuring up t o 1.6 cm. Nonspecific mild circumferential wall thickening along the ascending colon. Btin-rw-lfssidew stool th roughout. Mild sigmoid diverticulosis. No pericolonic inflammatory change. Bladder is collapsed with some circumferential wall thickening. Prostate gland is enlarged at 4.8 cm wide. No abnormal fluid collection the pelvis or pelvic lymphadenopathy. Pelvic phleboliths. Bones: Moderate degenerative disc disease L1-L2. IMPRESSION: 1. NO CONVINCING VENOUS THROMBUS IDENTIFIED IN THE ABDOMEN OR PELVIS. 2. 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 There is hemiazygos continuation of the IVC and a left abdominal IVC. 3. Midabdominal cory mesentery with mild localized mesenteric adenopathy measuring up to 1.6 cm. Fin dings may reflect mesenteric adenitis or early lymphoma. Recommend follow-up CT in 3 months to ensure stability/resolution. 4. Moderate circumferential wall thickening along the ascending colon may be due to incomplete disten tion. Correlate for a nonspecific mild colitis. 5. Known bilateral lower lobe pulmonary emboli. Increased patchy bibasilar opacities, probably areas of atelectasis. Follow-up to exclude areas of developing pulmonary infarct. Development of trace pleu ral effusions.
[2024-01-13] MEDS: ACETAMINOPHEN TAB 325 MG TAB PO PRN (09:40)
[2024-01-13 10:01] LABS: African American GFR (CKD) >90 (>60 ml/min/1.73 sqM); Anion Gap 3 mmol/L; Blood Urea Nitrogen 9 mg/dL (9-20); Calcium 8.2 mg/dL (8.4-10.2); Carbon Dioxide 25 mmol/L (22-30); Chloride 108 mmol/L (98-107); Glucose 137 mg/dL (74-99); Non-African American GFR(CKD) >90 (>60 ml/min/1.73 sqM); Potassium 3.7 mmol/L (3.5-5.1); Sodium 136 mmol/L (137-145)
[2024-01-13 10:06] VITALS: RESP 15
--- NOTE | 2024-01-13 10:37 | P.PN ---
Subjective Progress Note Date: 01/13/24 Principal diagnosis: Submassive bilateral pulmonary emboli Patient is seen and examined today as a follow-up. He is sitting up at the bedside eating his breakfast. States he is having more pain today mostly in the right side of rib cage with movement and deep breath. States this is the first time he has been really getting up and moving. Oxygen saturation is 97 to 98% on 2 L of nasal cannula. Objective - Vital Signs Vital signs: Vital Signs Temp 97.5 F L 01/13/24 04:00 Pulse 73 01/13/24 04:00 Resp 18 01/13/24 04:00 BP 92/56 01/13/24 04:00 Pulse Ox 93 L 01/13/24 04:00 FiO2 95 01/11/24 17:15 Intake & Output 01/12/24 01/13/24 01/13/24 18:59 06:59 18:59 Intake Total 2694.642 1025 Output Total 800 700 Balance 1894.642 325 Intake: IV 1073.37 825 .9 10 x 2 venous sheaths 50 Alteplase 6 mg In Sodium 25 Chloride 0.9% 144 ml @ 1 MG/HR 25 mls/hr IV .Q6H ONE Rx#:[id number] Alteplase 6 mg In Sodium 25 Chloride 0.9% 144 ml @ 1 MG/HR 25 mls/hr IV .Q6H ONE Rx#:[id number] Heparin Sod,Pork in 0.45% 13.37 NaCl 25,000 unit In 0.45 % NaCl 1 250ml.bag @ 18 UNITS/KG/HR 18.37 mls/hr IV .[id number] [facility] Rx#: [id number] Heparin Sod,Pork in 0.45% 2.5 NaCl 25,000 unit In 0.45 % NaCl 1 250ml.bag @ 2.5 mls/hr IV .Q24H [facility] Rx#: [id number] Heparin Sod,Pork in 0.45% 2.5 NaCl 25,000 unit In 0.45 % NaCl 1 250ml.bag @ 2.5 mls/hr IV .Q24H [facility] Rx#: [id number] Invasive Line 4 20 Sodium Chloride 0.9% 1, 35 000 ml @ 35 mls/hr IV . Q24H [facility] Rx#:[id number] Sodium Chloride 0.9% 1, 900 825 000 ml @ 75 mls/hr IV . [id number] [facility] Rx#:[id number] Intake, IV Titration 181.272 Amount Heparin Sod,Pork in 0.45% 109.188 NaCl 25,000 unit In 0.45 % NaCl 1 250ml.bag @ 18 UNITS/KG/HR 18.37 mls/hr IV .[id number] [facility] Rx#: [id number] Heparin Sod,Pork in 0.45% 36.042 NaCl 25,000 unit In 0.45 % NaCl 1 250ml.bag @ 2.5 mls/hr IV .Q24H [facility] Rx#: [id number] Heparin Sod,Pork in 0.45% 36.042 NaCl 25,000 unit In 0.45 % NaCl 1 250ml.bag @ 2.5 mls/hr IV .Q24H [facility] Rx#: [id number] Oral 1440 200 Output: Urine 800 700 Other: Voiding Method Urinal Toilet Urinal # Bowel Movements 0 1 - Exam General appearance: The patient is alert, oriented, appears in no acute distress. HET: Head is normocephalic and atraumatic. Pupils are equal and reactive. Neck: Supple. Heart: Regular. Lungs: Equal expansion, normal respiratory effort. Abdomen: Soft, nontender, nondistended. Extremities: Normal skin color and turgor. Bilateral lower extremity warm to the touch, palpable DP pulses and lower extremity swelling. Right groin access site without any hematoma. Neurological: No focal deficits. Alert and oriented x 3.. - Labs CBC & Chem 7: 01/12/24 04:22 01/13/24 09:16 Assessment and Plan Assessment: 1. Bilateral submassive pulmonary emboli with right heart strain status post pulmonary pharmacomechanical thrombolysis with EKOS 2. Left lower extremity deep vein thrombosis 3. History of right lower extremity deep vein thrombosis Plan: 1. Continue symptomatic and supportive care 2. Continue Eliquis 10 mg twice daily, taper dose 3. Patient may have regular diet 4. Incentive spirometer ordered, encourage use 5. Encourage ambulation as tolerated 6. Patient may be transferred to cardiac stepdown unit with telemetry Thank you for this consultation, for pain continues to improve. Patient is cleared from vascular surgery for discharge. The impression and plan of care has been dictated as directed. Dr. Rice I performed a history and examination of this patient, discussed the same with the dictator. I agree with the dictator's note ,documented as a scribe. Any additional findings or plans will be noted.
[2024-01-13 12:29] VITALS: BP 119/78; TEMP 97.6
--- NOTE | 2024-01-13 13:08 | P.DS ---
Providers Date of admission: 01/11/24 09:52 Expected date of discharge: 01/13/24 Attending physician: Al Perdue MD Consults: 01/11/24 09:44 Consult Physician Urgent Consulting Provider: Estevan Rice Consult Reason/Comments: Pulmonary embolism Do you want consulting provider notified?: Already Contacted Primary care physician: [facility] Course: 58 year old M with PMH of RLE DVT, venous insufficiency and BPH presented to the ED with complaints of chest pain worse with inspiration and exertional SOB. In the ED he underwent extensive evaluation. BP 114/64, HR 118, RR 22, T 98F, 87% on RA. CBC, Coag panel, CMP showed WBC 11.1, PT 12.8, INR 1.2, glu 117, Na 135, T. Bili 1.5, ALT 50. Mag 2.1. Troponin 0.070. D-Dimer 25.07. CXR RLL atelectasis. CTA chest bilateral PE with right heart strain and wedge shaped ground glass opacities. Patient was started on a heparin drip and admitted for management of PE. Vascular duplex showed LLE + DVT. Echo EF 55-60%, dilated RV and mild RV hypokinesis, mild-mod TR. Vascular surgery consulted and he underwent EKOS with infusion of alteplase. Transferred to ICU post EKOS. 01/11 Patient was seen and examined. No acute events overnight. Still with pleuritic chest pain with deep inspiration but improved. CBC RBC 4.21, Hg 12.9. Fibrinogen 431. CMP Na 134, Cl 110, bicarb 19, Cr 0.63, Ca 7.8, T. Bili 1.5, alb 2.8. 01/12 Patient was seen and examined. No acute events overnight. Chest pain improved. Able to take a shower. Discussed with Magda GUADALUPE, vascular cleared for surgery. Prescription for Eliquis and [place] PRN sent. Patient will likely need Eliquis life long which was discussed. Plans for home O2 eval prior to discharge. CT AP does show an enlarged lymph node in the abdomen. Patient reports that he was recently recovering from a colitis. He is advised the need for repeat CT in 3 months to ensure resolution. Follow up with PCP within 1-2 days, Vascular surgery and Hematology within 1 week of discharge. General: non toxic, no distress, appears at stated age Derm: warm, dry Head: atraumatic, normocephalic, symmetric Eyes: EOMI, no lid lag, anicteric sclera Mouth: no lip lesion, mucus membranes moist Cardiovascular: S1S2 reg, no murmur Lungs: CTA bilateral, no rhonchi, no rales , no accessory muscle use Ext: no gross muscle atrophy, no edema, no contractures Psych: Alert, oriented, appropriate affect Discharge Diagnosis: Acute hypoxic respiratory failure secondary to bilateral PE with right heart strain Troponin elevation likely type II NSTEMI Mesenteric enlarged lymph node Leukocytosis Supratherapeutic INR Elevated bilirubin This complex discharge took 35 minutes to complete. Patient Condition at Discharge: Stable Plan - Discharge Summary Discharge Rx Participant: No New Discharge Prescriptions: New Acetaminophen Tab [Tylenol] 650 mg PO Q6HR PRN tab PRN Reason: Mild Pain Or Fever > 100.5 Apixaban [Eliquis Starter Pack (for VTE)] 5 - 10 mg PO DIRECTED 30 Days #1 each HYDROcodone/APAP 5-325MG [[place] 5-325] 1 each PO Q4HR PRN #18 tab PRN Reason: Moderate Pain (Scale 4 To 6) Continue Tamsulosin HCl [Flomax] 0.4 mg PO HS Discharge Medication List Tamsulosin HCl [Flomax] 0.4 mg PO HS 01/11/24 [History] Apixaban [Eliquis Starter Pack (for VTE)] 5 - 10 mg PO DIRECTED 30 Days #1 each 01/12/24 [Rx] Acetaminophen Tab [Tylenol] 650 mg PO Q6HR PRN tab 01/13/24 [Rx] HYDROcodone/APAP 5-325MG [[place] 5-325] 1 each PO Q4HR PRN #18 tab 01/13/24 [Rx] Follow up Appointment(s)/Referral(s): Kerwin Figueroa [STAFF PHYSICIAN] - 1 Week Abby Perry DO [STAFF PHYSICIAN] - 1 Week None,Stated [REFERRING] - 1-2 days Discharge Disposition: HOME SELF-CARE
[2024-01-13 13:47] VITALS: PULSE 93
--- NOTE | 2024-01-13 15:16 | CDI ---
Documentation Clarification Form Date: 01/13/2024 03:13:59 PM From: Tawnya Kaye RN, CCDS Phone: [phone] Admit Date: 01/11/2024 09:52:00 AM Patient Name: Devendra Calle Visit Number: [id number] Discharge Date: ATTENTION: The Clinical Documentation Specialists (CDI) and [facility] Coding Staff appreciate your assistance in clarifying documentation. Please respond to the clarification below the line at the bottom and electronically sign. The CDI & [facility] Coding staff will review the response and follow-up if needed. Please note: Queries are made part of the Legal Health Record. If you have any questions, please contact the author of this message via ITS. Dr. Al Perdue There is documentation of bilateral submissive pulmonary embolism with right heart strain. Additional clarification is requested. History/Risk Factors: Venous insufficiency, DVT, and BPH Clinical Indicators: 58-year-old male who presented to the emergency department this morning with complaints of shortness of breath and pain in the right side of his chest. CT angiogram of the chest: bilateral pulmonary emboli with evidence of right heart strain, wedge-shaped ground glass opacity possible representing early pulmonary infarct. 01/10 VS: 114/64 118 22 98 87% RA Labs: WBC 11.1 D-Dimer 25.07, Troponin 0.070, 0.063 Treatment: Heparin Drip (per orders) ultrasound-guided right common femoral vein access of central venous catheters x 2, Iliofemoral angiogram Initiation of pulmonary pharmacal mechanical thrombolysis with EKOS Can you please clarify if you are treating? [ x ] Acute bilateral submassive pulmonary embolism with right heart stain with acute Cor pulmonale [ ] Acute bilateral submassive pulmonary embolism with right heart strain without acute Cor pulmonale [ ] Other, please specify [ ] Unable to determine (Template Last Revised: September 2020) MTDD
== END 2024-01-13 15:21 | disposition home or self-care (01) | DRG 121 ==
LOC: EC 07:03 → 3SCARD 09:52 → 2SICU 11:06
PROVIDERS: ADMIT Family Medicine; ATTEND Family Medicine
PROC: 02FQ3Z0 Fragmentation of Right Pulmonary Artery, Percutaneous Approach, Ultrasonic (ICD-10-PCS; 2024-01-11)
PROC: B54BZZA Ultrasonography of Right Lower Extremity Veins, Guidance (ICD-10-PCS; 2024-01-11)
PROC: B5191ZZ Fluoroscopy of Inferior Vena Cava using Low Osmolar Contrast (ICD-10-PCS; 2024-01-11)
PROC: B41C1ZZ Fluoroscopy of Pelvic Arteries using Low Osmolar Contrast (ICD-10-PCS; 2024-01-11)
PROC: B41F1ZZ Fluoroscopy of Right Lower Extremity Arteries using Low Osmolar Contrast (ICD-10-PCS; 2024-01-11)
PROC: 02FR3Z0 Fragmentation of Left Pulmonary Artery, Percutaneous Approach, Ultrasonic (ICD-10-PCS; principal; 2024-01-11 09:30)
PROC: 3E03317 Introduction of Other Thrombolytic into Peripheral Vein, Percutaneous Approach (ICD-10-PCS; 2024-01-11 09:30)
DX: I26.09 Other pulmonary embolism with acute cor pulmonale (principal); I82.402 Acute embolism and thrombosis of unspecified deep veins of left lower extremity; J96.01 Acute respiratory failure with hypoxia; I21.A1 Myocardial infarction type 2; I87.2 Venous insufficiency (chronic) (peripheral); N40.0 Benign prostatic hyperplasia without lower urinary tract symptoms; D72.829 Elevated white blood cell count, unspecified; R17 Unspecified jaundice; R79.1 Abnormal coagulation profile; Z79.01 Long term (current) use of anticoagulants; Z86.718 Personal history of other venous thrombosis and embolism
CPT/HCPCS: 36415; 37211; 71046; 71275; 74177; 75746; 80048; 80053; 83735; 84484; 85025; 85379; 85384; 85610; 85730; 86850; 86900; 86901; 93005; 93306; 93970; 96361; 96365; 96366; 96375; 99291

== ENCOUNTER → 2024-05-09 | Outpatient (CLI) | payer OTHER ==
--- NOTE | 2024-05-09 15:38 | CT ---
EXAMINATION TYPE: CT abdomen pelvis w con DATE OF EXAM: 05/09/2024 3:21 PM COMPARISON: 01/12/2024 CLINICAL INDICATION: Male, 58 years old with history of R59.0 lymphadenopathy; TECHNIQUE: Axial CT abdomen pelvis w con;Sagittal and coronal reformats were created on a separate w orkstation. Contrast used:100ml mL of Isovue 300 with IV Contrast, (none if empty) Oral contrast used: with Oral Contrast (none if empty) CT DLP: 1741 mGycm, Automated exposure control for dose reduction was used. FINDINGS: LOWER CHEST: Unremarkable ABDOMEN LIVER: Unremarkable GALLBLADDER AND BILE DUCTS: Layering gallstone present. PANCREAS: Unremarkable. SPLEEN: Unremarkable. ADRENAL GLANDS: Unremarkable. KIDNEYS AND URETERS: No evidence of hydronephrosis or renal calculus. The ureters are unremarkable. PELVIS BLADDER: No evidence for wall thickening or mass given limitations of exam. REPRODUCTIVE: Prostate is enlarged in size measuring 5.2 cm in transverse dimension. ABDOMEN & PELVIS STOMACH AND BOWEL: No evidence of bowel obstruction. The appendix is normal. PERITONEUM/RETROPERITONEUM: No evidence of pneumoperitoneum or free fluid. There is is a cory mesent jose present VASCULATURE: No evidence of aortic aneurysm. MUSCULOSKELETAL: No acute osseous abnormalities LYMPH NODES: No gross evidence for lymphadenopathy. Stable lymph nodes within the mesentery measuring up to 16 mm compared to prior. SOFT TISSUE/ABDOMINAL WALL: Bilateral fat-containing inguinal hernias. IMPRESSION: 1. Similar appearing cory mesentery. No new or enlarging lymph nodes definitively visualized, the p rior lymph nodes are not significantly changed measuring up to 16 mm. 2. Prostatomegaly, correlate with serum PSA. 3. Cholelithiasis. [facility], , 05/09/2024 3:35 PM
== END | disposition home or self-care (01) ==
LOC: RADCTMAIN 13:27
PROVIDERS: ATTEND Internal Medicine Hematology & Oncology
DX: R59.0 Localized enlarged lymph nodes (principal); N40.0 Benign prostatic hyperplasia without lower urinary tract symptoms; K80.20 Calculus of gallbladder without cholecystitis without obstruction; K40.90 Unilateral inguinal hernia, without obstruction or gangrene, not specified as recurrent
CPT/HCPCS: 74177; Q9967

== ENCOUNTER → 2024-07-11 | Outpatient (CLI) | payer OTHER ==
[2024-07-11 13:50] VITALS: BP 164/94; PULSE 86; RESP 16; TEMP 98.1
--- NOTE | 2024-07-11 14:14 | P.SLEEP ---
History of Present Illness DATE: 07/11/2024 CONSULTATION/NEW PATIENT EVALUATION HISTORY OF PRESENT ILLNESS/SLEEP-WAKE EVALUATION: 59-year-old gentleman had been evaluated in the sleep center for possible obstructive sleep apnea hypopnea syndrome. SLEEP SCHEDULE: Usually sleep schedule from 4 midnight until 10 AM. FALLING ASLEEP: Sometimes patient has difficulties with falling asleep. DURING SLEEP: Patient has loud snoring and witnessed episodes of stop breathing during the sleep patient wakes up from sleep with nocturia, episodes of gasping for air no history of hypnogogical hallucinations, sleep paralysis, or cataplexy. DURING THE DAY/WAKE STATE: Patient may have episodes of sleepiness during the day. [place] sleepiness scale is 6. Patient usually does not take naps. PAST MEDICAL HISTORY: Bilateral pulmonary embolism in January 2024, BPH, hyperlipidemia. PAST SURGICAL HISTORY: Right leg venous ablation. MEDICATIONS: Have been reviewed, please see below. SOCIAL HISTORY: Please see below. FAMILY HISTORY: Please see below. REVIEW OF SYSTEMS: Loud snoring, awakenings from sleep with gasping for air. No fevers. No double vision. No recent chest pain. No shortness of breath. No abdominal pain. No bleeding episodes. No blood in urine. No seizure episodes. PHYSICAL EXAMINATION: GENERAL: A pleasant patient without any distress. VITAL SIGNS: Please see below, weight 227 pounds, BMI 35. HEENT: SADE COTTRELL. Evaluation of oropharynx showed tongue protrudes midline, low position of soft palate Mallampati 3, retrognathia 1 to 2 mm. Restriction of nasal breathing on the right side NECK: Supple. No JVD. Thyroid is not palpable. 17 inches in circumference. LUNGS: Clear to percussion and to auscultation. Good air exchange. No wheezing or rhonchi. HEART: S1, S2 regular. No murmurs, gallops or rubs. ABDOMEN: Soft and nontender. Bowel sounds are present. No organomegaly appreciated. EXTREMITIES: No clubbing or cyanosis. STRATEGIES ANALYST: Awake, alert, and oriented x3. Cranial nerves 2 to 7 intact. There is no fasciculation or atrophy noted. No focal deficits observed. ASSESSMENT: 1. Loud snoring, witnessed episodes of stop breathing during the sleep, awakenings from sleep with gasping for air, low position of soft palate Mallampati 3, wide neck 17 inches in circumference, retrognathia 1 to 2 mm, restriction of nasal breathing. Obstructive sleep apnea hypopnea syndrome. 2. Restriction of nasal breathing on the right side, possibly nasal septum deviation. 3. Mild obesity, BMI 35. 4. Status post bilateral pulmonary embolism in January 2024. 5 BPH. 6 . Hyperlipidemia. 7. Status post right leg venous ablation. 8. Hypertension in the office, blood pressure 164/94.. PLAN: 1. Polysomnography for evaluation of patient's breathing during sleep. 2. Following plan after reading sleep study. 3. Preferable position during sleep on the side. 4. No driving if patient feels any sleepiness. Patient is aware of civil and criminal liability for unsafe driving. 5. Sleep hygiene with regular sleep time for at least 7.5-8 hours. 6. Watching and losing weight. Thank you very much for referring this patient for consultation. Sincerely, Ángel Morrow MD, PhD, FAASM. Diplomat of [place] [employer], Sleep Medicine Board by [place] [employer] [place] [employer]ope Technologist [facility] [place] cc: Lino Caballero DO Past Medical History Past Medical History: Deep Vein Thrombosis (DVT) Additional Past Medical History / Comment(s): DVT in left leg 2009 History of Any Multi-Drug Resistant Organisms: None Reported Past Surgical History: No Surgical Hx Reported Additional Past Surgical History / Comment(s): vericlose vein surgery Past Anesthesia/Blood Transfusion Reactions: No Reported Reaction Past Psychological History: No Psychological Hx Reported Smoking Status: Never smoker Past Alcohol Use History: None Reported Past Drug Use History: None Reported - Past Family History Father Family Medical History: Congestive Heart Failure (CHF) Additional Family Medical History / Comment(s): Passed at 87 Mother Family Medical History: Hypertension Medications and Allergies Home Medications Medication Instructions Recorded Confirmed Type Tamsulosin HCl [Flomax] 0.4 mg PO HS 01/11/24 07/11/24 History Apixaban [Eliquis Starter Pack 5 - 10 mg PO DIRECTED 30 Days 01/12/24 07/11/24 Rx (for VTE)] #1 each Acetaminophen Tab [Tylenol] 650 mg PO Q6HR PRN tab 01/13/24 Rx HYDROcodone/APAP 5-325MG [[place] 1 each PO Q4HR PRN #18 tab 01/13/24 Rx 5-325] Atorvastatin [Lipitor] 20 mg PO DAILY 07/11/24 07/11/24 History Allergies Allergy/AdvReac Type Severity Reaction Status Date / Time No Known Allergies Allergy Verified 01/11/24 08:58 Physical Exam Vitals: Vital Signs Temp Pulse Resp BP Pulse Ox 07/11/24 13:47 98.1 F 86 16 164/94 94 L Intake and Output 07/10/24 07/11/24 07/11/24 22:59 06:59 14:59 Other: Weight 102.965 kg Sleep Note - Sleep Data ESS Total: 6 - Sleep Note Sleep Note: Temperature: 98.1 F Pulse Rate: 86 Respiratory Rate: 16 Blood Pressure: 164/94 SpO2: 94 Height: 5 ft 7.5 in Weight: 102.965 kg BMI: Neck Circumference: 17
== END ==
LOC: 3 N SLEEP 13:27
PROVIDERS: ATTEND Internal Medicine
DX: G47.33 Obstructive sleep apnea (adult) (pediatric) (principal); N40.0 Benign prostatic hyperplasia without lower urinary tract symptoms; E78.5 Hyperlipidemia, unspecified; I10 Essential (primary) hypertension; Z86.711 Personal history of pulmonary embolism; E66.9 Obesity, unspecified; Z68.35 Body mass index [BMI] 35.0-35.9, adult; Z79.01 Long term (current) use of anticoagulants
CPT/HCPCS: 99211

== ENCOUNTER 2024-10-17 19:42 | Outpatient (CLI) | payer OTHER ==
--- NOTE | 2024-10-18 12:13 | P.PCN ---
Description of Procedure: CLINICAL: Titration with positive air pressure has been done for correction of respiratory abnormalities during sleep. DESCRIPTION OF PROCEDURE: The standard montage for clinical polysomnography included the electroencephalogram, the electrocardiogram, the mentalis surface electromyography and Lead II cardiography. The respiratory battery consisted of measurements of nasal /buccal air flow, pressure transducer measurements from the nose, thoracic and /or abdominal effort and intercostal surface electromyography. Video monitoring has been done to check for any parasomnia events. Nocturnal oxyhemoglobin saturations were obtained by finger oximetry. Step-mathew titration with positive airway pressure was utilized to control respiratory events. Raw data of sleep recording has been reviewed and is adequate. RESULTS: Sleep efficiency was significantly decreased to 66.9%. Latency to sleep onset was normal at 12.5 minutes.]. Sleep architecture showed stage N1 was short 4.2%, Delta sleep was absent 0%, REM sleep was normal 24.1%. Heart rate was minimum 53 BPM, maximum 61 BPM, average 57 BPM. EMG showed 1.0 periodic limb movements per hour with 0 micriarousals per hour. PAP titration have been done with CPAP up to the pressure 10 cm H2O. The best results were at the pressure 8 cm H2O. Apnea hypopnea index reduced to 1.1. IMPRESSION: 1. Obstructive sleep apnea hypopnea syndrome on controle with PAP treatment. 2. No significant periodic limb movements have been documented. Please see other impressions from consultation. PLAN: 1. The patient will have treatment with positive air pressure equipment with the level of pressure AutoPap 5-11 cm H2O and should use it every night for the whole night. 2. Watching and losing weight. 3. Sleep hygiene with regular time in bed for at least 8 hours. 4. No driving if feeling any sleepiness. 5. I will see the patient for follow up visit to explain the results of the test, recommendations, check compliance with treatment and make any necessary adjustment related to mask fitting, pressure and humidification. Thank you very much for allowing me to participate in the management of your patient. Sincerely, Ángel Morrow MD, PhD, FAASM Diplomat of [place] [employer] Sleep Medicine Board of [place] [employer] [facility] T[facility] [place] cc: Lino Caballero DO
== END 2024-10-18 04:30 | disposition home or self-care (01) ==
LOC: 3 N SLEEP 19:42
PROVIDERS: ATTEND Internal Medicine
DX: G47.33 Obstructive sleep apnea (adult) (pediatric) (principal); Z99.89 Dependence on other enabling machines and devices
CPT/HCPCS: 95811

== ENCOUNTER 2024-12-21 11:59 | Day surgery (SDC) | payer OTHER ==
[2024-12-21 12:42] LABS: Glucose,Whole Blood 77 mg/dL (70-110)
[2024-12-21] MEDS: LACTATED RINGERS 1,000 ML IV SCH (12:55)
[2024-12-21] MEDS: IV FLUID CONTINUATION 1,000 ML IV ONE ×2 (13:00→13:50)
[2024-12-21 13:01] VITALS: TEMP 97.5
[2024-12-21] MEDS: hydrALAZINE HCL 20 MG/ML 1 ML VIAL IVP STA (13:35)
[2024-12-21 13:53] VITALS: BP 155/114; PULSE 165; RESP 18
== END 2024-12-21 14:00 | disposition other institution (70) ==
LOC: ORWHC2ENDO 11:59
PROVIDERS: ATTEND Internal Medicine Gastroenterology
DX: Z12.11 Encounter for screening for malignant neoplasm of colon (principal)
CPT/HCPCS: 45378; J0360

== ENCOUNTER 2024-12-21 14:02 | Emergency (ER) | payer OTHER ==
--- NOTE | 2024-12-21 14:33 | ED ---
General Adult HPI - General Chief complaint: Shortness of Breath Stated complaint: afib,rvr Time Seen by Provider: 12/21/24 14:12 Source: patient, family, RN notes reviewed Mode of arrival: wheelchair Limitations: no limitations - History of Present Illness Initial comments: Patient is a 59-year-old male present to the emergency department with concerns for atrial fibrillation. Patient was up endoscopy about to have his first colonoscopy, routine. Patient was found to have A-fib with RVR, rate 160. Patient admits to having some palpitations and dyspnea. Symptoms have resolved. Patient also converted to a sinus rhythm arm and route to the emergency department. Patient currently symptom-free. No history of similar symptoms previously. Patient is on anticoagulation secondary to history of pulmonary embolism. - Related Data Home Medications Medication Instructions Recorded Confirmed Tamsulosin HCl [Flomax] 0.4 mg PO HS 01/11/24 12/21/24 Atorvastatin [Lipitor] 20 mg PO HS 07/11/24 12/21/24 Apixaban [Eliquis] 2.5 mg PO BID 12/20/24 12/21/24 Allergies Allergy/AdvReac Type Severity Reaction Status Date / Time No Known Allergies Allergy Verified 12/21/24 14:21 Review of Systems ROS Statement: Those systems with pertinent positive or pertinent negative responses have been documented in the HPI. ROS Other: All systems not noted in ROS Statement are negative. Constitutional: Denies: fever Eyes: Denies: eye pain ENT: Denies: ear pain Respiratory: Reports: as per HPI. Denies: cough Cardiovascular: Reports: as per HPI, palpitations. Denies: chest pain Endocrine: Denies: fatigue Gastrointestinal: Denies: abdominal pain Musculoskeletal: Denies: back pain Past Medical History Past Medical History: Deep Vein Thrombosis (DVT) Additional Past Medical History / Comment(s): DVT in left leg 2009, hx PE History of Any Multi-Drug Resistant Organisms: None Reported Past Surgical History: No Surgical Hx Reported Additional Past Surgical History / Comment(s): vericlose vein surgery Past Anesthesia/Blood Transfusion Reactions: No Reported Reaction Past Psychological History: No Psychological Hx Reported Past Alcohol Use History: None Reported - Past Family History Father Family Medical History: Congestive Heart Failure (CHF) Additional Family Medical History / Comment(s): Passed at 87 Mother Family Medical History: Hypertension General Exam Limitations: no limitations General appearance: alert, in no apparent distress Head exam: Present: normocephalic Eye exam: Present: normal appearance Neck exam: Present: normal inspection Respiratory exam: Present: normal lung sounds bilaterally Cardiovascular Exam: Present: regular rate, normal rhythm, normal heart sounds Expanded Peripheral pulses: 2+: Radial (R), Radial (L), Posterior Tibialis (R), Posterior Tibialis (L) GI/Abdominal exam: Present: soft. Absent: tenderness Extremities exam: Present: normal inspection. Absent: pedal edema, calf tenderness Neurological exam: Present: alert Psychiatric exam: Present: normal affect, normal mood Skin exam: Present: normal color Course Vital Signs 12/21/24 14:18 Temperature 98.7 F Pulse Rate 92 Respiratory 20 Rate Blood Pressure 132/94 O2 Sat by Pulse 94 L Oximetry EKG Findings - EKG Results: EKG: interpreted by CHRISTEN, sinus rhythm, normal axis, normal QRS, normal ST/T Medical Decision Making - Medical Decision Making Was pt. sent in by a medical professional or institution (, PA, [employer], urgent care, hospital, or skilled nursing...) When possible be specific @ -Patient was sent from endoscopy Did you speak to anyone other than the patient for history (EMS, parent, family, police, friend...)? What history was obtained from this source @ -Transfer team provides history of patient being in A-fib and converting in route Did you review nursing and triage notes (agree or disagree)? Why? @ -I reviewed and agree with nursing and triage notes Were old charts reviewed (outside hosp., previous admission, EMS record, old E KG, old radiological studies, urgent care reports/EKG's, skilled nursing records)? Report findings @ -No old charts were reviewed Differential Diagnosis (chest pain, altered mental status, abdominal pain women, abdominal pain men, vaginal bleeding, weakness, fever, dyspnea, syncope, headache, dizziness, GI bleed, back pain, seizure, CVA, palpatations, mental health, musculoskeletal)? @ -Differential Palpitations Ventricular arrhythmias, atrial arrhythmias, myocardial infarction, anemia, thyrotoxicosis, electrolyte imbalance, hypokalemia, pulmonary embolism, pulmonary disease, drugs, alcohol, anxiety, stress.... This is not meant to be an all-inclusive list. EKG interpreted by me (3pts min.). @ -As above X-rays interpreted by me (1pt min.). @ -Chest x-ray shows no acute process CT interpreted by me (1pt min.). @ -None done U/S interpreted by me (1pt. min.). @ -None done What testing was considered but not performed or refused? (CT, X-rays, U/S, labs)? Why? @ -None What meds were considered but not given or refused? Why? @ -None Did you discuss the management of the patient with other professionals (professionals i.e. , PA, [employer], lab, RT, psych nurse, social media strategist, sexual assault nurse, teacher, payroll officer, spring encaser)? Give summary @ -Case discussed with Dr. Simpson who would like patient to go back for endoscopy. Following that she will discharge patient with follow-up with ca rdiology Was smoking cessation discussed for >3mins.? @ -No Was critical care preformed (if so, how long)? @ -No Were there social determinants of health that impacted care today? How? (Homelessness, low income, unemployed, alcoholism, drug addiction, transportation, low edu. Level, literacy, decrease access to med. care, halfway, rehab)? @ -No Was there de-escalation of care discussed even if they declined (Discuss DNR or withdrawal of care, Hospice)? DNR status @ -No What co-morbidities impacted this encounter? (DM, HTN, Smoking, COPD, CAD, Cancer, CVA, ARF, Chemo, Hep., AIDS, mental health diagnosis, sleep apnea, morbid obesity)? @ -None Was patient admitted / discharged? Hospital course, mention meds given and route, prescriptions, significant lab abnormalities, going to OR and other pertinent info. @ -Patient presents from endoscopy for routine colonoscopy. Patient had A-fib RVR, resolved and route. Patient is on Eliquis secondary to history of PE. Patient will go back to endoscopy and will follow-up with cardiology. Patient reevaluated and updated Undiagnosed new problem with uncertain prognosis? @ -No Drug Therapy requiring intensive monitoring for toxicity (Heparin, Nitro, Insulin, Cardizem)? @ -No Were any procedures done? @ -No Diagnosis/symptom? @ -A-fib Acute, or Chronic, or Acute on Chronic? @ -Acute Uncomplicated (without systemic symptoms) or Complicated (systemic symptoms)? @ -Default Side effects of treatment? @ -No Exacerbation, Progression, or Severe Exacerbation? @ -No Poses a threat to life or bodily function? How? (Chest pain, [place], [place], pneumonia, PE, COPD, DKA, ARF, appy, cholecystitis, CVA, Diverticulitis, Homicidal, Suicidal, threat to staff... and all critical care pts) @ -No - Lab Data Result diagrams: 12/21/24 14:37 12/21/24 14:37 Lab Results 12/21/24 12/21/24 12/21/24 Range/Units 14:37 14:37 14:37 WBC 6.85 (4.50-10.00) 10*3/uL RBC 4.95 (4.40-5.60) 10*6/uL Hgb 15.4 (13.0-17.0) g/dL Hct 44.8 (39.6-50.0) % MCV 90.5 (80.0-97.0) fL MCH 31.1 (27.0-32.0) pg MCHC 34.4 (32.0-37.0) g/dL Plt Count 254 (140-440) 10*3/uL MPV 10.3 (9.5-12.2) fL Immature Gran % (Auto) 0.9 % Neutrophils % 69.0 % Lymphocytes % 22.5 % Monocytes % 6.6 % Eosinophils % 0.4 % Basophils % 0.6 % Immature Gran # 0.06 H (0.00-0.04) 10*3/uL Neutrophils # 4.73 (1.80-7.70) 10*3/uL Lymphocytes # 1.54 (0.90-5.00) 10*3/uL Monocytes # 0.45 (0.20-1.00) 10*3/uL Eosinophils # 0.03 L (0.04-0.35) 10*3/uL Basophils # 0.04 (0.00-0.10) 10*3/uL PT 12.2 (10.0-12.5) sec INR 1.1 (<1.2) APTT 23.8 (22.0-30.0) sec Sodium 141 (137-145) mmol/L Potassium 4.1 (3.5-5.1) mmol/L Chloride 107 (98-107) mmol/L Carbon Dioxide 23 (22-30) mmol/L Anion Gap 11 mmol/L BUN 13 (9-20) mg/dL Creatinine 0.77 (0.66-1.25) mg/dL Est GFR (CKD-EPI)AfAm >90 (>60 ml/min/1.73 sqM) Est GFR (CKD-EPI)NonAf >90 (>60 ml/min/1.73 sqM) Glucose 77 (74-99) mg/dL Calcium 9.7 (8.4-10.2) mg/dL Magnesium 2.1 (1.6-2.3) mg/dL Total Bilirubin 1.8 H (0.2-1.3) mg/dL AST 30 (17-59) U/L ALT 33 (4-49) U/L Alkaline Phosphatase 117 (38-126) U/L Troponin I (0.000-0.034) ng/mL Total Protein 7.0 (6.3-8.2) g/dL Albumin 4.1 (3.5-5.0) g/dL TSH 1.520 (0.465-4.680) mIU/L Free T4 1.63 (0.78-2.19) ng/dL 12/21/25 Range/Units 14:37 WBC (4.50-10.00) 10*3/uL RBC (4.40-5.60) 10*6/uL Hgb (13.0-17.0) g/dL Hct (39.6-50.0) % MCV (80.0-97.0) fL MCH (27.0-32.0) pg MCHC (32.0-37.0) g/dL Plt Count (140-440) 10*3/uL MPV (9.5-12.2) fL Immature Gran % (Auto) % Neutrophils % % Lymphocytes % % Monocytes % % Eosinophils % % Basophils % % Immature Gran # (0.00-0.04) 10*3/uL Neutrophils # (1.80-7.70) 10*3/uL Lymphocytes # (0.90-5.00) 10*3/uL Monocytes # (0.20-1.00) 10*3/uL Eosinophils # (0.04-0.35) 10*3/uL Basophils # (0.00-0.10) 10*3/uL PT (10.0-12.5) sec INR (<1.2) APTT (22.0-30.0) sec Sodium (137-145) mmol/L Potassium (3.5-5.1) mmol/L Chloride (98-107) mmol/L Carbon Dioxide (22-30) mmol/L Anion Gap mmol/L BUN (9-20) mg/dL Creatinine (0.66-1.25) mg/dL Est GFR (CKD-EPI)AfAm (>60 ml/min/1.73 sqM) Est GFR (CKD-EPI)NonAf (>60 ml/min/1.73 sqM) Glucose (74-99) mg/dL Calcium (8.4-10.2) mg/dL Magnesium (1.6-2.3) mg/dL Total Bilirubin (0.2-1.3) mg/dL AST (17-59) U/L ALT (4-49) U/L Alkaline Phosphatase (38-126) U/L Troponin I <0.012 (0.000-0.034) ng/mL Total Protein (6.3-8.2) g/dL Albumin (3.5-5.0) g/dL TSH (0.465-4.680) mIU/L Free T4 (0.78-2.19) ng/dL Disposition Clinical Impression: Atrial fibrillation Disposition: HOME SELF-CARE Condition: Stable Instructions (If sedation given, give patient instructions): A-fib (Atrial Fibrillation) (ED) Additional Instructions: Please return for endoscopy. Please follow-up with your primary care physician as well as cardiology in the next couple of days for recheck. Please monitor your heart rate. Return for irregular heart rate, increased heart rate, chest pain or shortness of breath, worsening symptoms or other concerns. Continue Eliquis as advised by Dr. Simpson. Is patient prescribed a controlled substance at d/c from ED?: No Referrals: Corey Boyer MD [Primary Care Provider] - 1-2 days Elizabeth Candelaria MD [STAFF PHYSICIAN] - 1-2 days Jet Candelaria MD [STAFF PHYSICIAN] - 1-2 days Time of Disposition: 15:49
--- NOTE | 2024-12-21 14:52 | XR ---
EXAMINATION TYPE: XR chest 2V DATE OF EXAM: 12/21/2024 2:48 PM COMPARISON: 01/11/2024 CLINICAL INDICATION: Male, 59 years old with history of dysrhythmia: Shortness of breath TECHNIQUE: XR chest 2V views of the chest are obtained. FINDINGS: Scattered senescent parenchymal changes noted. Hyperinflation compatible with COPD. No evidence for infiltrate. No evidence for atelectasis. Heart size is stable. Mediastinal structures are stable and grossly unremarkable. No evidence for hilar prominence. Degenerative changes dorsal spine. IMPRESSION: 1. No evidence for acute pulmonary disease. [facility], , 12/21/2024 2:49 PM
[2024-12-21 14:56] LABS: Basophils # (A) 0.04 10*3/uL (0.00-0.10); Basophils % (A) 0.6 %; Eosinophils # (A) 0.03 10*3/uL (0.04-0.35); Eosinophils % (A) 0.4 %; HCT 44.8 % (39.6-50.0); HGB 15.4 g/dL (13.0-17.0); Lymphocytes # (A) 1.54 10*3/uL (0.90-5.00); Lymphocytes % (A) 22.5 %; MCH 31.1 pg (27.0-32.0); MCHC 34.4 g/dL (32.0-37.0); MCV 90.5 fL (80.0-97.0); Mean Platelet Volume 10.3 fL (9.5-12.2); Monocytes # (A) 0.45 10*3/uL (0.20-1.00); Monocytes % (A) 6.6 %; Neutrophils # (A) 4.73 10*3/uL (1.80-7.70); Platelet Count 254 10*3/uL (140-440); RBC 4.95 10*6/uL (4.40-5.60); RDW 13.3 % (11.5-14.5); WBC 6.85 10*3/uL (4.50-10.00)
[2024-12-21 15:15] LABS: ALT 33 U/L (4-49); AST 30 U/L (17-59); African American GFR (CKD) >90 (>60 ml/min/1.73 sqM); Albumin 4.1 g/dL (3.5-5.0); Alkaline Phosphatase 117 U/L (38-126); Anion Gap 11 mmol/L; Blood Urea Nitrogen 13 mg/dL (9-20); Calcium 9.7 mg/dL (8.4-10.2); Carbon Dioxide 23 mmol/L (22-30); Chloride 107 mmol/L (98-107); Glucose 77 mg/dL (74-99); Magnesium 2.1 mg/dL (1.6-2.3); Non-African American GFR(CKD) >90 (>60 ml/min/1.73 sqM); Potassium 4.1 mmol/L (3.5-5.1); Sodium 141 mmol/L (137-145); Total Bilirubin 1.8 mg/dL (0.2-1.3)
[2024-12-21 15:20] LABS: INR 1.1 (<1.2); Partial Thromboplastin Time 23.8 sec (22.0-30.0); Prothrombin Time 12.2 sec (10.0-12.5)
[2024-12-21 15:31] LABS: T4, Free (Free Thyroxine) 1.63 ng/dL (0.78-2.19)
[2024-12-21 16:22] VITALS: BP 135/78; PULSE 75; RESP 18; TEMP 98.6
== END 2024-12-21 16:21 | disposition home or self-care (01) ==
LOC: EC 14:02
DX: I48.91 Unspecified atrial fibrillation (principal); Z86.711 Personal history of pulmonary embolism; Z79.01 Long term (current) use of anticoagulants
CPT/HCPCS: 36415; 71046; 80053; 83735; 84439; 84443; 84481; 84484; 85025; 85610; 85730; 93005; 99285

== ENCOUNTER 2024-12-21 16:12 | Day surgery (SDC) | payer OTHER ==
[2024-12-21] MEDS: IV FLUID CONTINUATION 1,000 ML IV ONE (16:22)
[2024-12-21] MEDS: LACTATED RINGERS 1,000 ML BAG IV STA (16:29)
[2024-12-21 16:34] VITALS: TEMP 98.2
[2024-12-21] MEDS ORDERED: PROPOFOL 10 MG/ML 20 ML VIAL IV ONE (16:40)
--- NOTE | 2024-12-21 16:59 | P.PCN ---
Date of Procedure: 12/21/24 Procedure(s) Performed: BRIEF HISTORY: Patient is a 59-year-old pleasant white male scheduled for an elective colonoscopy as a part of screening for colon cancer. He has history of DVT and is on Eliquis which is on hold for 2 days. PROCEDURE PERFORMED: Colonoscopy. PREOPERATIVE DIAGNOSIS: Screening for colon cancer. IV sedation per Anesthesia. PROCEDURE: After informed consent was obtained, the patient, was brought into the endoscopy unit. IV sedation was administered by Anesthesia under continuous monitoring. Digital rectal examination was normal. Initially the Olympus CF-160 flexible video colonoscope was then inserted in the rectum, gradually advanced into the cecum without any difficulty. Careful examination was performed as the scope was gradually being withdrawn. Ileocecal valve and the appendiceal orifice were visualized and appeared normal. Prep was excellent. Mucosa of the cecum, ascending colon, transverse colon, descending colon, sigmoid colon, and rectum appeared normal. Retroflexion was performed in the rectum and no lesions were seen. The patient tolerated the procedure well. IMPRESSION: Normal-appearing colon from rectum to cecum with no evidence of colitis or colorectal neoplasia Small internal hemorrhoids. RECOMMENDATIONS: Findings of this examination were discussed with the patient as well as his family.. He was advised to have repeat screening colonoscopy in 10 years. Resume Elicarlosis sandra.
[2024-12-21 17:49] VITALS: RESP 16
[2024-12-21 18:25] VITALS: BP 132/84; PULSE 68
== END 2024-12-21 18:09 | disposition home or self-care (01) ==
LOC: ORWHC2ENDO 16:12
PROVIDERS: ATTEND Internal Medicine Gastroenterology
DX: Z12.11 Encounter for screening for malignant neoplasm of colon (principal); K64.8 Other hemorrhoids; Z79.01 Long term (current) use of anticoagulants; Z79.899 Other long term (current) drug therapy; Z86.718 Personal history of other venous thrombosis and embolism; Z86.711 Personal history of pulmonary embolism
CPT/HCPCS: 45378; J2704

== ENCOUNTER → 2025-01-10 | Outpatient (CLI) | payer OTHER ==
[2025-01-10 14:33] VITALS: BP 143/81; PULSE 66; RESP 16; TEMP 97.8
--- NOTE | 2025-01-10 14:51 | P.PROGSL ---
Subjective DATE: 01/10/2025 FOLLOW UP VISIT. Patient with obstructive sleep apnea hypopnea syndrome return to sleep center for follow-up visit. Recently patient had sleep study which documented obstructive sleep apnea hypopnea syndrome. Patient was initiated on PAP therapy and today is first visit after treatment was started. Patient was able to use PAP equipment every night for the whole night. The patient does not have significant problems with the mask, PAP pressure and humidification. [place] sleepiness scale is 8, which is normal. I checked information from PAP unit. PAP unit pressure 5-11, average 6.6 cm H2O. Usage is 80% for more then 4 hours, average 4 hours per night. Leak is 8.7 l/m, which is in acceptable range. Apnea Hypopnea Index is 0.9, which is normal. MEDICATIONS: Please see below During physical exam: GENERAL: A pleasant patient without any distress. VITAL SIGNS: Weight 222 pounds. HEENT: PERRLA, EOMI.low position of soft palate, Mallapati 3 . NECK: Supple. No JVD. LUNGS: Clear to percussion and to auscultation. Good air exchange. No wheezing or rhonchi. HEART: S1, S2 regular. ABDOMEN: Soft and nontender. Obese EXTREMITIES: No clubbing or cyanosis. FLIGHT PHYSICIAN: Awake, alert, and oriented x3. No focal deficit. Impressions: 1. Obstructive sleep apnea-hypopnea syndrome. Patient demonstrated good compliance with treatment, benefiting from treatment. 2. Obesity. 3. Status post bilateral pulmonary embolism in January 2024. 4. Status post recent episode of atrial fibrillation. 5. Hyperlipidemia. 6. BPH. 7. Status post surgical treatment for veins on the right leg. Plan: 1. Continue using PAP equipment every night for the whole night. 2. To change air filter at least 1-2 times per month. 3. PAP unit should stay lower then position of the head. 4. Advised patient to remove all remaining water from humidifier canister daily and make it dry after each usage. Refill canister with fresh distilled water before each usage. 5. Sleep hygiene with regular time in bed for at least 8 hours. 6. Precautions related to driving. No driving if feel any sleepiness. 7. I will maintain prescription for PAP supplies including mask, tube, filters. 8. Follow up visit in 8 months or earlier if patient has any problems. 9. Watching and losing weight. Thank you very much for allowing me to participate in the management of your patient. Ángel Morrow MD, PhD, FAASM. Diplomat of [place] [employer], Sleep Medicine Board by [employer] [facility] [place] Objective - Vital Signs Vital Signs: Vital Signs Temp 97.8 F 01/10/25 14:31 Pulse 66 01/10/25 14:31 Resp 16 01/10/25 14:31 BP 143/81 01/10/25 14:31 Pulse Ox 95 01/10/25 14:31 FiO2 Intake & Output 01/09/25 01/10/25 01/10/25 18:59 06:59 18:59 Weight 100.698 kg Home Medications: Home Medications Medication Instructions Recorded Confirmed Type Tamsulosin HCl [Flomax] 0.4 mg PO HS 01/11/24 12/21/24 History Atorvastatin [Lipitor] 20 mg PO HS 07/11/24 12/21/24 History Apixaban [Eliquis] 2.5 mg PO BID 12/20/24 12/21/24 History
== END ==
LOC: 3 N SLEEP 13:59
PROVIDERS: ATTEND Internal Medicine
DX: G47.33 Obstructive sleep apnea (adult) (pediatric) (principal); E78.5 Hyperlipidemia, unspecified; N40.0 Benign prostatic hyperplasia without lower urinary tract symptoms; Z86.711 Personal history of pulmonary embolism; Z86.79 Personal history of other diseases of the circulatory system; Z98.890 Other specified postprocedural states; Z99.89 Dependence on other enabling machines and devices
CPT/HCPCS: 99212